=== PATIENT | female | born 1940 | race Caucasian/White ===

== ENCOUNTER → 2023-08-15 14:28 | Outpatient (REF) | payer MEDICARE, OTHER, SELFPAY | LOC: RAD 14:28 | PROVIDERS: ATTENDING PHYSICIAN Physician Assistant Medical; FAMILY PHYSICIAN Internal Medicine Geriatric Medicine | DX: I73.9 Peripheral vascular disease, unspecified (principal); Z98.62 Peripheral vascular angioplasty status; Z86.39 Personal history of other endocrine, nutritional and metabolic disease; Z86.79 Personal history of other diseases of the circulatory system; I65.23 Occlusion and stenosis of bilateral carotid arteries | CPT/HCPCS: 93880; 93922; 93925 ==

== ENCOUNTER → 2023-08-27 15:22 | Outpatient (REF) | payer MEDICARE, OTHER, SELFPAY ==
[2023-08-27 10:53] LABS: % Basophils 0.2 % (0-2); % Eosinophils 2.3 % (0-6); % Immature Granulocytes 0.2 % (0-0.5); % Lymphocytes 18.3 % (20.5-51.1); % Monocytes 9.9 % (1.7-9.3); % Neutrophils 69.1 % (42.2-75.2); Absolute Eosinophils 0.2 10^3/uL (0-0.7); Absolute Lymphocytes 1.2 10^3/uL (1.2-3.4); Absolute Monocytes 0.6 10^3/uL (0.1-0.6); Absolute Neutrophils 4.5 10^3/uL (1.4-6.5); Hematocrit 29.5 % (37.0-47.0); Mean Corp Hgb Conc. 33.9 g/dL (33.0-37.0); Mean Corpuscular Volume 97.4 fL (81.0-99.0); Mean Platelet Volume 10.2 fL (7.4-10.4); Platelet Count 247 10^3/uL (130-400); Red Blood Cell Count 3.03 10^6/uL (4.20-5.40); Red Cell Dist. Width 14.3 % (11.5-14.5); White Blood Cell Count 6.5 10^3/uL (4.8-10.8)
[2023-08-27 11:55] LABS: ALT (SGPT) 21 U/L (0-35); AST (SGOT) 33 U/L (14-36); Albumin 4.2 g/dl (3.5-5.0); Alkaline Phosphatase 77 U/L (38-126); Blood Urea Nitrogen 22 mg/dl (7-17); Calcium 9.6 mg/dl (8.4-10.2); Carbon Dioxide 27 mmol/L (22-30); Chloride 103 mmol/L (98-107); Glucose 88 mg/dl (70-99); Iron 69 ug/dl (37-170); Potassium 4.1 mmol/L (3.5-5.1); Sodium 138 mmol/L (135-145); Total Bilirubin 0.8 mg/dl (0.2-1.3); eGFR 45.76
[2023-08-27 12:04] LABS: Percent Saturation 19 % (20-50); Total Iron Binding Capacity 363 ug/dl (265-497)
[2023-08-27 12:28] LABS: Ferritin 66.5 ng/ml (11.1-264.0)
== END ==
LOC: OIDL 15:22
PROVIDERS: ATTENDING PHYSICIAN Internal Medicine Hematology & Oncology
DX: C92.10 Chronic myeloid leukemia, BCR/ABL-positive, not having achieved remission (principal)
CPT/HCPCS: 80053; 82728; 83540; 83550; 85025

== ENCOUNTER → 2023-08-30 06:44 | Outpatient (REF) | payer MEDICARE, OTHER, SELFPAY | LOC: MRI 06:44 | PROVIDERS: ATTENDING PHYSICIAN Physical Medicine & Rehabilitation; FAMILY PHYSICIAN Internal Medicine Geriatric Medicine | DX: M54.16 Radiculopathy, lumbar region (principal) | CPT/HCPCS: 72148 ==

== ENCOUNTER → 2023-09-22 15:12 | Outpatient (REF) | payer MEDICARE, OTHER, SELFPAY ==
[2023-09-22 15:44] LABS: % Basophils 0.1 % (0-2); % Immature Granulocytes 0.3 % (0-0.5); % Monocytes 10.6 % (1.7-9.3); Absolute Eosinophils 0.2 10^3/uL (0-0.7); Absolute Lymphocytes 1.6 10^3/uL (1.2-3.4); Absolute Monocytes 0.8 10^3/uL (0.1-0.6); Absolute Neutrophils 5.1 10^3/uL (1.4-6.5); Hematocrit 28.7 % (37.0-47.0); Hemoglobin 9.6 g/dL (12.0-16.0); Mean Corp Hgb Conc. 33.4 g/dL (33.0-37.0); Mean Corpuscular Hgb 32.5 pg (27.0-31.0); Mean Corpuscular Volume 97.3 fL (81.0-99.0); Mean Platelet Volume 10.7 fL (7.4-10.4); Nucleated Red Blood Cells % 0 %; Platelet Count 202 10^3/uL (130-400); Red Blood Cell Count 2.95 10^6/uL (4.20-5.40); Red Cell Dist. Width 13.3 % (11.5-14.5); White Blood Cell Count 7.7 10^3/uL (4.8-10.8)
[2023-09-22 15:53] LABS: Urine Albumin Negative (Neg - Trace); Urine Bilirubin Negative (Negative); Urine Character Clear (Clear); Urine Color Yellow; Urine Glucose Negative (Negative); Urine Ketone Negative (Negative); Urine Leukocyte Trace (Negative); Urine Nitrite Negative (Negative); Urine Occult Blood Negative (Negative); Urine Specific Gravity 1.015 (<1.030); Urine Urobilinogen Negative (Neg - 1+)
[2023-09-22 15:56] LABS: ALT (SGPT) 16 U/L (0-35); AST (SGOT) 28 U/L (14-36); Albumin 4.2 g/dl (3.5-5.0); Alkaline Phosphatase 60 U/L (38-126); Blood Urea Nitrogen 28 mg/dl (7-17); Calcium 9.5 mg/dl (8.4-10.2); Carbon Dioxide 29 mmol/L (22-30); Chloride 103 mmol/L (98-107); Glucose 80 mg/dl (70-99); Potassium 3.6 mmol/L (3.5-5.1); Sodium 138 mmol/L (135-145); Total Bilirubin 0.8 mg/dl (0.2-1.3); Total Protein 6.1 g/dl (6.3-8.2); eGFR 50.48
[2023-09-22 16:02] LABS: NT-proBNP 9720 pg/ml
[2023-09-22 16:21] LABS: Urine Amorphous Seen; Urine White Cell 0-2 /HPF (0-5)
== END ==
LOC: REG 15:12
PROVIDERS: ATTENDING PHYSICIAN Nurse Practitioner Family
DX: R53.83 Other fatigue (principal); R60.0 Localized edema
CPT/HCPCS: 36415; 80053; 81003; 81015; 83880; 85025

== ENCOUNTER → 2023-10-03 08:45 | Outpatient (REF) | payer MEDICARE, OTHER, SELFPAY | LOC: HWRAD 08:45 | PROVIDERS: ATTENDING PHYSICIAN Nurse Practitioner Family; FAMILY PHYSICIAN Internal Medicine Geriatric Medicine | DX: R53.83 Other fatigue (principal); R60.0 Localized edema | CPT/HCPCS: 93970 ==

== ENCOUNTER → 2023-11-26 13:50 | Outpatient (REF) | payer MEDICARE, OTHER, SELFPAY ==
[2023-11-26 09:29] LABS: % Basophils 0.4 % (0-2); % Eosinophils 3.2 % (0-6); % Immature Granulocytes 0.1 % (0-0.5); % Monocytes 7.3 % (1.7-9.3); Absolute Eosinophils 0.2 10^3/uL (0-0.7); Absolute Lymphocytes 1.4 10^3/uL (1.2-3.4); Absolute Monocytes 0.6 10^3/uL (0.1-0.6); Absolute Neutrophils 5.4 10^3/uL (1.4-6.5); Hematocrit 31.7 % (37.0-47.0); Hemoglobin 10.7 g/dL (12.0-16.0); Mean Corp Hgb Conc. 33.8 g/dL (33.0-37.0); Mean Corpuscular Hgb 31.8 pg (27.0-31.0); Mean Corpuscular Volume 94.3 fL (81.0-99.0); Platelet Count 208 10^3/uL (130-400); Red Blood Cell Count 3.36 10^6/uL (4.20-5.40); Red Cell Dist. Width 13.7 % (11.5-14.5); White Blood Cell Count 7.6 10^3/uL (4.8-10.8)
[2023-11-26 10:13] LABS: ALT (SGPT) 22 U/L (0-35); AST (SGOT) 40 U/L (14-36); Albumin 4.3 g/dl (3.5-5.0); Alkaline Phosphatase 72 U/L (38-126); Blood Urea Nitrogen 24 mg/dl (7-17); Calcium 9.4 mg/dl (8.4-10.2); Carbon Dioxide 28 mmol/L (22-30); Chloride 100 mmol/L (98-107); Glucose 92 mg/dl (70-99); Iron 83 ug/dl (37-170); Potassium 3.7 mmol/L (3.5-5.1); Sodium 139 mmol/L (135-145); Total Bilirubin 0.8 mg/dl (0.2-1.3); Total Protein 6.2 g/dl (6.3-8.2); eGFR 41.31
[2023-11-26 10:22] LABS: Percent Saturation 24 % (20-50); Total Iron Binding Capacity 337 ug/dl (265-497)
[2023-11-26 10:47] LABS: Ferritin 57.5 ng/ml (11.1-264.0)
== END ==
LOC: OIDL 13:50
PROVIDERS: ATTENDING PHYSICIAN Internal Medicine Hematology & Oncology
DX: C92.10 Chronic myeloid leukemia, BCR/ABL-positive, not having achieved remission (principal)
CPT/HCPCS: 80053; 82728; 83540; 83550; 83735; 85025

== ENCOUNTER → 2024-01-21 10:06 | Outpatient (REF) | payer MEDICARE, OTHER, SELFPAY | LOC: HWRAD 10:06 | PROVIDERS: ATTENDING PHYSICIAN Physician Assistant; FAMILY PHYSICIAN Internal Medicine Geriatric Medicine | DX: E04.2 Nontoxic multinodular goiter (principal) | CPT/HCPCS: 76536 ==

== ENCOUNTER → 2024-01-26 09:40 | Outpatient (REF) | payer MEDICARE, OTHER, SELFPAY | LOC: HWWDC 09:40 | PROVIDERS: ATTENDING PHYSICIAN Obstetrics & Gynecology; FAMILY PHYSICIAN Internal Medicine Geriatric Medicine | DX: Z12.31 Encounter for screening mammogram for malignant neoplasm of breast (principal) | CPT/HCPCS: 77063; 77067 ==

== ENCOUNTER 2024-02-21 19:58 | Emergency (ER) | payer MEDICARE, OTHER, SELFPAY ==
[2024-02-21 20:05] VITALS: BP 168/76
[2024-02-21 21:15] VITALS: BMI 34.6
[2024-02-21 21:23] VITALS: BP 168/59
[2024-02-21 21:42] LABS: % Basophils 0.1 % (0-2); % Eosinophils 0.7 % (0-6); % Immature Granulocytes 0.3 % (0-0.5); % Monocytes 7.3 % (1.7-9.3); % Neutrophils 76.6 % (42.2-75.2); Absolute Eosinophils 0.1 10^3/uL (0-0.7); Absolute Lymphocytes 1.4 10^3/uL (1.2-3.4); Absolute Monocytes 0.7 10^3/uL (0.1-0.6); Absolute Neutrophils 6.9 10^3/uL (1.4-6.5); Hematocrit 29.8 % (37.0-47.0); Hemoglobin 10.6 g/dL (12.0-16.0); Mean Corp Hgb Conc. 35.6 g/dL (33.0-37.0); Mean Corpuscular Hgb 32.2 pg (27.0-31.0); Mean Corpuscular Volume 90.6 fL (81.0-99.0); Mean Platelet Volume 10.4 fL (7.4-10.4); Nucleated Red Blood Cells % 0 %; Platelet Count 225 10^3/uL (130-400); Red Blood Cell Count 3.29 10^6/uL (4.20-5.40); Red Cell Dist. Width 13.2 % (11.5-14.5); Urine Albumin Negative (Neg - Trace); Urine Bilirubin Negative (Negative); Urine Character Clear (Clear); Urine Color Yellow; Urine Glucose 3+ (Negative); Urine Ketone 1+ (Negative); Urine Leukocyte Negative (Negative); Urine Nitrite Negative (Negative); Urine Occult Blood Negative (Negative); Urine Urobilinogen Negative (Neg - 1+)
[2024-02-21 21:52] LABS: ALT (SGPT) 24 U/L (0-35); AST (SGOT) 42 U/L (14-36); Albumin 4.5 g/dl (3.5-5.0); Alkaline Phosphatase 69 U/L (38-126); Blood Urea Nitrogen 19 mg/dl (7-17); Calcium 9.5 mg/dl (8.4-10.2); Carbon Dioxide 26 mmol/L (22-30); Chloride 98 mmol/L (98-107); Estimated Creatinine Clearance 33 ml/min; Glucose 105 mg/dl (70-99); Potassium 3.7 mmol/L (3.5-5.1); Sodium 137 mmol/L (135-145); Total Bilirubin 1.1 mg/dl (0.2-1.3); Total Protein 6.5 g/dl (6.3-8.2); eGFR 41.31
[2024-02-21 22:00] VITALS: BP 152/54
--- NOTE | 2024-02-21 22:04 | ED.GENMED ---
History of Present Illness
General
Chief Complaint: Flank Pain
Source: patient
Exam Limitations: none
Time Seen by Provider: 02/21/24 21:14
History of Present Illness
History of Present Illness:
This is a 83 year old female that comes in with c/o left sided back pain in the kidney area. States that this started last night and she drank a lot of water. States that she did not sleep all night. States that she called her daughter today as she
didn't want to be alone. States that the pain got less but never really went away. States that the pain comes around from the back into the left groin. States that tonight she was nauseated and she took Zofran and right after this she vomited.
states that she does have diarrhea. Denies any fever, chills, chest pain, SOB, headache, dizziness, urinary burning.
Past History
Past History
ED Past Medical History: Arrthythmia (Atrial fib), CAD, Cancer (CML), CHF, GERD, HTN, Hypercholesterolemia and Other (back pain, Tingling arms and leg, DVT, pericarditis, GI bleeding, IBS, Shingles, Anemia, )
ED Past Surgical History: Cardiac (Stent), Gynecological (D&C), Orthopedic (right and left knee meniscus repair, carpal tunnel, Back surgery x 2), Tonsilectomy and Other (cataracts, hemorrhoids, )
Social History
Tobacco: Former smoker
Alcohol: None
Personal:
Living: alone
Employment: Not employed
Review of Systems
Review of Systems
All Other Systems: ROS reviewed and negative except as documented in HPI and ROS
Constitutional: Reports no symptoms; Denies fever or chills
EENT: Reports no symptoms
Respiratory: Reports no symptoms; Denies cough or trouble breathing
Cardiac: Reports no symptoms; Denies chest pain
ABD/GI: Reports abdominal pain, nausea and vomiting; Denies diarrhea
: Reports no symptoms; Denies dysuria, frequency or urgency
Musculoskeletal: Reports no symptoms
Skin: Reports no symptoms
Neurological: Reports no symptoms; Denies dizzy or headache
Psychiatric: Reports no symptoms
Phy Exam
General Physical Exam
General Presentation: mild distress
General age: appears stated age
General Skin: warm and dry
General Habitus: elderly
General Mental: alert
General Hydration: dry mucous membranes
ENT Exam
ENT Exam: TM's normal, pharynx normal and neck supple
Eye Exam
Eye Exam: EOMI
Cardiovascular Exam
Cardiovascular Exam: regular rate/rhythm, no edema, normal peripheral pulses and other (Murmur)
Pulmonary Exam
Pulmonary Exam: lungs clear, no respiratory distress, no rales, chest non tender, no crackles, no rhonchi, no wheezing and no cough
Gastrointestinal Exam
Gastrointestinal Exam: normal bowel sounds, soft, no organomegaly, no pulsatile mass, non distended, no cva tenderness and tender (Left sided abd tenderness with palpation)
Musculoskeletal Exam
Musculoskeletal Exam: full ROM and no edema
Skin Exam
Skin Exam: normal color, warm/dry, no rash and no petechia
Course
Orders/Labs/Results
Orders:
Orders
02/21/24 21:29
Complete Blood Count/With Diff Urgent
Comprehensive Metabolic Panel Urgent
Urinalysis Urgent
Date Specimen was Collected: 02/21/24
Time Specimen was Collected: 20:26
02/21/24 22:04
CT Abd/pelvis W Iv Cont Urgent
Comment:
Reason For Exam: lEFT FLANK PAIN
02/21/24 22:06
Ondansetron Injectable [Zofran] 4 mg IV NOW STA
02/21/24 22:10
HYDROmorphone [Dilaudid] 0.5 mg IV NOW STA
Abnormal Lab Results
02/21/24
21:29
RBC 3.29 L 10^6/uL
(4.20-5.40)
Hgb 10.6 L g/dL
(12.0-16.0)
Hct 29.8 L %
(37.0-47.0)
MCH 32.2 H pg
(27.0-31.0)
Absolute Neuts (auto) 6.9 H 10^3/uL
(1.4-6.5)
Absolute Monos (auto) 0.7 H 10^3/uL
(0.1-0.6)
Neutrophils % 76.6 H %
(42.2-75.2)
Lymphocytes % 15.0 L %
(20.5-51.1)
BUN 19 H mg/dl
(7-17)
Creatinine 1.3 H mg/dL
(0.6-1.0)
Glucose 105 H mg/dl
(70-99)
AST 42 H U/L
(14-36)
Urine Ketones 1+ A
(Negative)
Urine Glucose 3+ A
(Negative)
02/21/24 21:29
02/21/24 21:29
H/H slightly low, anemia, Slight Dehydration. glucose nonfasting. AST mildly elevated. Urine negative for infection.
Vital Signs
Initial and Last Documented VS:
Initial Vital Signs
Temp Pulse Resp BP Pulse Ox
98.3 F 74 20 168/76 97
02/21/24 20:05 02/21/24 20:05 02/21/24 20:05 02/21/24 20:05 02/21/24 20:05
Last Documented Vital Signs
Temp Pulse Resp BP Pulse Ox
98.3 F 74 20 152/54 95
02/21/24 20:05 02/21/24 20:05 02/21/24 20:05 02/21/24 22:00 02/21/24 23:30
MDM/Problems Addressed
Differential Diagnosis Includes:
Diverticulitis, Colitis, renal calculus
MDM/Problems Addressed:
This is a 83 year old female that comes in with c/o left sided back pain that comes around to her abd. States that this started last night and she was unable to sleep.
Will check labs, urine and get CT scan.
back into see patient. Explained that her CT is negative for any renal calculus, obstruction or diverticulitis. Patient Urine is negative for infection. Explained that this may be due to degenerative change sin the back. Patient can use heat or ice
to the low back. Tylenol 1000mg every 6 hours for pain. Follow up with the family doctor. Return with any concerns.
Chronic conditions affecting care:
GI bleeding,
Chronic conditions affecting care: Cancer
Acute Exacerbation and/or Progression of Chronic Illness:
NA
*Radiology
Radiology exam reviewed: radiology read reviewed (CT night hawk-NO evidence of obstructing ureteral calculus. No evidence of diverticulitis. Noninflamed appendix. No evidence of bowel obstruction. Additional findings: Moderate hiatal hernia. DJD.
Lumbar levoscoliosis. Vascular calcifications including coronary artery calcifications. ) and other (CT cont-Probable left renal cystic focus. )
*Pulse Oximetry
Patient hypoxic: no
*EKG
Interpreted by ED Provider?: NA
Rate: EKG- N/A
*Product Applications Scientist Interpretation
Rate: Product Applications Scientist- N/A
*Critical Care Note
Total Time (30-74mins, 75-104mins- exclusive of procedures): Not Applicable
ED Attending Note
-
Portions of this chart may have been created with voice recognition software.� Occasional wrong word or��sound alike� substitutions may have occurred due to the inherent limitations of voice recognition software.
Discharge Plan
Departure
Patient Disposition: Home (Routine Discharge)
Date of Disposition: 02/22/24
Time of Disposition: 00:24
Patient with high blood pressure during this ER visit?: Yes
Condition: Good
Covid-19: Not Applicable
Discharge Problem:
Back pain
Instructions: Low Back Pain (DC), BLOOD PRESSURE
Prescriptions:
No Action
Repatha Syringe 140 MG/ML syringe
140 mg SC Q2W
alprazolam 0.25 MG tablet
0.25 mg PO DAILYPRN PRN (Reason: anxiety/sleep)
Patient Comments:
04/08/2023: last filled 09/04/22, 30 tabs for 30 days from [facility][id number]
pantoprazole 40 MG tablet,delayed release (DR/EC)
40 mg PO DAILY
irbesartan 300 MG tablet
300 mg PO DAILY
hydralazine 50 MG tablet
75 mg PO BID
imatinib 400 MG tablet
400 mg PO HS
isosorbide mononitrate 30 MG tablet extended release 24 hr
30 mg PO DAILY
alendronate 70 MG tablet
70 mg PO MO
metoprolol succinate 50 MG tablet extended release 24 hr
50 mg PO HS
Eliquis 5 MG tablet
5 mg PO BID Qty: 30 0RF
doxycycline hyclate 100 mg Capsule
100 mg PO Q12 Qty: 10 0RF
gabapentin 300 mg Capsule
300 mg PO TID Qty: 90 0RF
Referrals:
Caden Caballero MD [Family Provider] - Call in 1-3 days for appt
Activity Restrictions/Additional Instructions:
As discussed, your blood work shows very slight Dehydration. Your Urine is negative for infection and your CT is negative for any acute process. You may is most likely from the degenerative changes in the low back. You may use heat or ice to the
back. Tylenol 1000mg every 6 hours for pain. Follow up with the family doctor for recheck. IF YOU HAVE ANY OTHER CONCERNS PLEASE RETURN TO THE EMERGENCY ROOM.
Interventions
Interventions:
*Risk Screen - Suicide Last Done: 02/21/24 20:05
*General Assessment Last Done: 02/21/24 21:15
*Neglect/Abuse Screening Last Done: 02/21/24 20:05
ED- Fall Risk Assessment Last Done: 02/21/24 21:15
*ED COVID-19 Vaccine History Last Done: 02/21/24 21:15
WC-Nqmmax-Zqnlrzvlkq Assessment Last Done: 02/21/24 21:15
ED-Female Genitourinary Assessment Last Done: 02/21/24 21:15
Discharge Date and Time
Print Language: HEBREW
[2024-02-21] MEDS: ZOFRAN 4 MG IV (22:15)
[2024-02-21] MEDS: DILAUDID 0.5 MG IV (22:24)
== END 2024-02-22 01:04 | disposition home or self-care (01) ==
LOC: EMR 19:58
PROVIDERS: Emergency Medicine; EMERGENCY PHYSICIAN Student in an Organized Health Care Education/Training Program; FAMILY PHYSICIAN Internal Medicine Geriatric Medicine
DX: M54.50 Low back pain, unspecified (principal); E78.00 Pure hypercholesterolemia, unspecified; I11.0 Hypertensive heart disease with heart failure; I50.9 Heart failure, unspecified; D64.9 Anemia, unspecified; E86.0 Dehydration; Z87.891 Personal history of nicotine dependence; Z95.5 Presence of coronary angioplasty implant and graft; K21.9 Gastro-esophageal reflux disease without esophagitis; Z85.6 Personal history of leukemia; Z86.718 Personal history of other venous thrombosis and embolism
CPT/HCPCS: 96374; 99284; 96375; 74177; 80053; 81003; 85025; Q9967

== ENCOUNTER → 2024-02-25 13:55 | Outpatient (REF) | payer MEDICARE, OTHER, SELFPAY ==
[2024-02-25 09:43] LABS: % Basophils 0.1 % (0-2); % Eosinophils 3.7 % (0-6); % Immature Granulocytes 0.1 % (0-0.5); % Lymphocytes 19.3 % (20.5-51.1); % Monocytes 9.3 % (1.7-9.3); % Neutrophils 67.5 % (42.2-75.2); Absolute Eosinophils 0.3 10^3/uL (0-0.7); Absolute Lymphocytes 1.5 10^3/uL (1.2-3.4); Absolute Monocytes 0.7 10^3/uL (0.1-0.6); Absolute Neutrophils 5.3 10^3/uL (1.4-6.5); Hematocrit 32.7 % (37.0-47.0); Mean Corp Hgb Conc. 33.6 g/dL (33.0-37.0); Mean Corpuscular Hgb 32.6 pg (27.0-31.0); Mean Platelet Volume 10.1 fL (7.4-10.4); Platelet Count 236 10^3/uL (130-400); Red Blood Cell Count 3.37 10^6/uL (4.20-5.40); Red Cell Dist. Width 13.1 % (11.5-14.5); White Blood Cell Count 7.9 10^3/uL (4.8-10.8)
[2024-02-25 10:36] LABS: ALT (SGPT) 24 U/L (0-35); AST (SGOT) 40 U/L (14-36); Albumin 4.4 g/dl (3.5-5.0); Alkaline Phosphatase 62 U/L (38-126); Blood Urea Nitrogen 20 mg/dl (7-17); Calcium 9.4 mg/dl (8.4-10.2); Carbon Dioxide 27 mmol/L (22-30); Chloride 101 mmol/L (98-107); Glucose 89 mg/dl (70-99); Iron 50 ug/dl (37-170); Magnesium 2.1 mg/dl (1.6-2.3); Potassium 3.8 mmol/L (3.5-5.1); Sodium 141 mmol/L (135-145); Total Bilirubin 0.8 mg/dl (0.2-1.3); Total Protein 6.3 g/dl (6.3-8.2); eGFR 45.48
[2024-02-25 10:45] LABS: Percent Saturation 14 % (20-50); Total Iron Binding Capacity 336 ug/dl (265-497)
[2024-02-25 11:12] LABS: Ferritin 67.6 ng/ml (11.1-264.0)
== END ==
LOC: OIDL 13:55
PROVIDERS: ATTENDING PHYSICIAN Internal Medicine Hematology & Oncology
DX: C92.10 Chronic myeloid leukemia, BCR/ABL-positive, not having achieved remission (principal); D50.9 Iron deficiency anemia, unspecified; D59.0 Drug-induced autoimmune hemolytic anemia
CPT/HCPCS: 80053; 82728; 83540; 83550; 83735; 85025

== ENCOUNTER → 2024-04-03 09:10 | Outpatient (REF) | payer MEDICARE, OTHER, SELFPAY ==
[2024-04-03 10:37] LABS: ALT (SGPT) 30 U/L (0-35); AST (SGOT) 41 U/L (14-36); Albumin 4.4 g/dl (3.5-5.0); Alkaline Phosphatase 78 U/L (38-126); Blood Urea Nitrogen 22 mg/dl (7-17); Calcium 9.7 mg/dl (8.4-10.2); Carbon Dioxide 30 mmol/L (22-30); Chloride 100 mmol/L (98-107); Glucose 79 mg/dl (70-99); HDL Cholesterol 65 mg/dl; LDL Cholesterol, Calculated 48 mg/dl; Potassium 4.8 mmol/L (3.5-5.1); Sodium 142 mmol/L (135-145); Total Bilirubin 0.9 mg/dl (0.2-1.3); Total Cholesterol 136 mg/dl (50-199); Total Protein 6.5 g/dl (6.3-8.2); Triglyceride 117 mg/dl (10-149); Very Low Density Lipoprotein 23 mg/dl (0-30); eGFR 41.31
== END ==
LOC: REG 09:10
PROVIDERS: ATTENDING PHYSICIAN Internal Medicine Cardiovascular Disease; FAMILY PHYSICIAN Internal Medicine Geriatric Medicine
DX: Z95.5 Presence of coronary angioplasty implant and graft (principal); N18.2 Chronic kidney disease, stage 2 (mild); I25.10 Atherosclerotic heart disease of native coronary artery without angina pectoris; E78.00 Pure hypercholesterolemia, unspecified
CPT/HCPCS: 36415; 80053; 80061

== ENCOUNTER → 2024-04-07 10:02 | Outpatient (REF) | payer MEDICARE, OTHER, SELFPAY | LOC: HWRCS 10:02 | PROVIDERS: ATTENDING PHYSICIAN Internal Medicine Cardiovascular Disease; FAMILY PHYSICIAN Internal Medicine Geriatric Medicine | DX: I35.0 Nonrheumatic aortic (valve) stenosis (principal) | CPT/HCPCS: 93306 ==

== ENCOUNTER → 2024-07-16 13:38 | Outpatient (REF) | payer OTHER, SELFPAY | LOC: RAD 13:38 | PROVIDERS: ATTENDING PHYSICIAN Student in an Organized Health Care Education/Training Program; FAMILY PHYSICIAN Internal Medicine Geriatric Medicine | DX: I73.9 Peripheral vascular disease, unspecified (principal) | CPT/HCPCS: 93923; 93925 ==

== ENCOUNTER → 2024-07-20 08:21 | Outpatient (REF) | payer OTHER, SELFPAY ==
[2024-07-20 12:45] LABS: % Basophils 0.1 % (0-2); % Eosinophils 1.6 % (0-6); % Immature Granulocytes 0.3 % (0-0.5); % Lymphocytes 12.8 % (20.5-51.1); % Monocytes 7.2 % (1.7-9.3); Absolute Eosinophils 0.2 10^3/uL (0-0.7); Absolute Lymphocytes 1.2 10^3/uL (1.2-3.4); Absolute Monocytes 0.7 10^3/uL (0.1-0.6); Absolute Neutrophils 7.2 10^3/uL (1.4-6.5); Hematocrit 32.8 % (37.0-47.0); Mean Corp Hgb Conc. 33.5 g/dL (33.0-37.0); Mean Corpuscular Hgb 32.9 pg (27.0-31.0); Mean Corpuscular Volume 98.2 fL (81.0-99.0); Mean Platelet Volume 10.6 fL (7.4-10.4); Nucleated Red Blood Cells % 0 %; Platelet Count 244 10^3/uL (130-400); Red Blood Cell Count 3.34 10^6/uL (4.20-5.40); Red Cell Dist. Width 14.2 % (11.5-14.5); White Blood Cell Count 9.3 10^3/uL (4.8-10.8)
[2024-07-20 13:00] LABS: ALT (SGPT) 23 U/L (0-35); AST (SGOT) 39 U/L (14-36); Albumin 4.6 g/dl (3.5-5.0); Alkaline Phosphatase 66 U/L (38-126); Blood Urea Nitrogen 19 mg/dl (7-17); Calcium 9.4 mg/dl (8.4-10.2); Carbon Dioxide 32 mmol/L (22-30); Chloride 97 mmol/L (98-107); Glucose 94 mg/dl (70-99); Potassium 3.3 mmol/L (3.5-5.1); Sodium 139 mmol/L (135-145); Total Protein 6.4 g/dl (6.3-8.2); eGFR 45.48
[2024-07-20 15:00] LABS: Free T4 1.42 ng/dl (0.78-2.19)
[2024-07-20 15:14] LABS: TSH 2.22 uIU/ml (0.47-4.68)
[2024-07-20 15:54] LABS: Free T3 3.79 pg/ml (2.77-5.27)
[2024-07-23 09:19] LABS: Total T3 (Sendout) 111 ng/dL (80-200)
== END ==
LOC: HWRAD 08:21
PROVIDERS: ATTENDING PHYSICIAN Physician Assistant; FAMILY PHYSICIAN Internal Medicine Geriatric Medicine; REFERRING PHYSICIAN Internal Medicine Hematology & Oncology
DX: E04.2 Nontoxic multinodular goiter (principal); C92.10 Chronic myeloid leukemia, BCR/ABL-positive, not having achieved remission; D50.9 Iron deficiency anemia, unspecified; R59.0 Localized enlarged lymph nodes; E05.90 Thyrotoxicosis, unspecified without thyrotoxic crisis or storm
CPT/HCPCS: 36415; 76536; 80053; 84439; 84443; 84480; 84481; 85025

== ENCOUNTER 2024-08-02 13:57 | Emergency (ER) | payer OTHER, SELFPAY ==
[2024-08-02 14:03] VITALS: BP 159/65
[2024-08-02 14:32] LABS: % Basophils 0.1 % (0-2); % Eosinophils 1.1 % (0-6); % Immature Granulocytes 0.2 % (0-0.5); % Lymphocytes 17.1 % (20.5-51.1); % Neutrophils 73.5 % (42.2-75.2); Absolute Eosinophils 0.1 10^3/uL (0-0.7); Absolute Lymphocytes 1.4 10^3/uL (1.2-3.4); Absolute Monocytes 0.7 10^3/uL (0.1-0.6); Hematocrit 32.9 % (37.0-47.0); Hemoglobin 11.2 g/dL (12.0-16.0); Mean Corpuscular Hgb 32.5 pg (27.0-31.0); Mean Corpuscular Volume 95.4 fL (81.0-99.0); Mean Platelet Volume 10.1 fL (7.4-10.4); Nucleated Red Blood Cells % 0 %; Platelet Count 249 10^3/uL (130-400); Red Blood Cell Count 3.45 10^6/uL (4.20-5.40); Red Cell Dist. Width 13.9 % (11.5-14.5); White Blood Cell Count 8.1 10^3/uL (4.8-10.8)
[2024-08-02 14:46] LABS: ALT (SGPT) 22 U/L (0-35); AST (SGOT) 36 U/L (14-36); Albumin 4.5 g/dl (3.5-5.0); Alkaline Phosphatase 60 U/L (38-126); Blood Urea Nitrogen 20 mg/dl (7-17); Calcium 9.6 mg/dl (8.4-10.2); Carbon Dioxide 26 mmol/L (22-30); Chloride 103 mmol/L (98-107); Glucose 127 mg/dl (70-99); Potassium 3.4 mmol/L (3.5-5.1); Sodium 141 mmol/L (135-145); Total Protein 6.4 g/dl (6.3-8.2); eGFR 45.48
[2024-08-02 15:16] LABS: TSH Reflex To Free T4 3.25 uIU/ml (0.47-4.68)
--- NOTE | 2024-08-02 16:17 | ED.GENMED ---
History of Present Illness
General
Chief Complaint: Heart Rate Problem
Source: patient
Exam Limitations: none
Time Seen by Provider: 08/02/24 15:43
Nursing documentation reviewed up to this point in time: agreed with
History of Present Illness
History of Present Illness:
Patient is a 83 y.o F w/ hx CHF, CAD, hypertension, hyperlipidemia, paroxysmal afib on eliquis presenting to the emergency department today with concerns of heart palpitations. Patient states that she was sitting on the couch earlier today when she
started to have a fluttering sensation in her chest. She was able to check her Apple Watch which showed an 'inconclusive rhythm '. Patient states she had very mild shortness of breath at the time although denies any chest pain or back pain. She
denies any lightheadedness or dizziness. Her heart rate was apparently in the low 100s.
Patient states she had similar symptoms last night although they resolved. Today�symptoms persisted prompting visit to ED. She did take her nighttime dose of metoprolol prior to visiting the ED. She does have a history of atrial fibrillation,
compliant with Eliquis. Patient denies any cough, fever. No lower extremity swelling or recent weight gain. No exertional chest pain or shortness of breath.
Patient follows with Dr. Salcedo as primary slate trimmer.
Past History
Past History
ED Past Medical History: Arrthythmia (Atrial fib), CAD, Cancer (CML), CHF, GERD, HTN, Hypercholesterolemia and Other (back pain, Tingling arms and leg, DVT, pericarditis, GI bleeding, IBS, Shingles, Anemia, )
ED Past Surgical History: Cardiac (Stent), Gynecological (D&C), Orthopedic (right and left knee meniscus repair, carpal tunnel, Back surgery x 2), Tonsilectomy and Other (cataracts, hemorrhoids, )
Social History
Tobacco: Former smoker
Alcohol: None
Personal:
Living: alone
Employment: Not employed
Review of Systems
Review of Systems
Allergies reviewed?: Yes
All Other Systems: ROS reviewed and negative except as documented in HPI and ROS
Phy Exam
Physical Exam
Physical Exam:
Vitals: Mildly hypertensive. Otherwise vital signs stable. Afebrile
General: Patient is well appearing, no acute distress. Nontoxic-appearing
Skin: Warm and dry, no rashes or lesions
Head: Normocephalic, atraumatic
Eyes: Sclera nonicteric. EOMs intact. No nystagmus.
Throat: Protecting airway
Neck: Normal ROM, no cervical spine tenderness, no meningismus. No JVD
Cardiac: Regular rate and rhythm. Systolic ejection murmur noted. 2+ radial pulses bilaterally
Pulm: Normal respiratory effort, no wheezes, rales, rhonchi heard on exam.
Abdomen: Nondistended. Abdomen soft and nontender.
Extremities: No evidence of cyanosis or edema. Palpable DP pulses bilaterally
Neuro: AAOx3. Grossly intact..
Psychiatric: Normal affect.
Course
Orders/Labs/Results
Orders:
Orders
08/02/24 13:58
Electrocardiogram (*1) Urgent
Reason for Study: Atrial Fibrillation
EKG- Treatment ONCE
08/02/24 14:14
NT-proBNP Urgent
Comment: ADD ON
08/02/24 14:15
Complete Blood Count/With Diff Urgent
Comprehensive Metabolic Panel Urgent
Magnesium Urgent
Comment: ADD ON
TSH Reflex To Free T4 Urgent
08/02/24 16:03
Cardiac Monitoring- Treatment ONCE
CR Chest - 2 Views Urgent
Comment:
Reason For Exam: shortenss of breath
08/02/24 16:31
Add On- LAB Urgent
Tests Added?: pro-BNP
08/02/24 18:07
Add On- LAB Urgent
Tests Added?: magnesium
Abnormal Lab Results
08/02/24
14:15
RBC 3.45 L 10^6/uL
(4.20-5.40)
Hgb 11.2 L g/dL
(12.0-16.0)
Hct 32.9 L %
(37.0-47.0)
MCH 32.5 H pg
(27.0-31.0)
Absolute Monos (auto) 0.7 H 10^3/uL
(0.1-0.6)
Lymphocytes % 17.1 L %
(20.5-51.1)
Potassium 3.4 L mmol/L
(3.5-5.1)
BUN 20 H mg/dl
(7-17)
Creatinine 1.2 H mg/dL
(0.6-1.0)
Glucose 127 H mg/dl
(70-99)
08/02/24 14:15
08/02/24 14:15
Vital Signs
Initial and Last Documented VS:
Initial Vital Signs
Temp Pulse Resp BP Pulse Ox
97.9 F 71 18 159/65 97
08/02/24 14:03 08/02/24 14:03 08/02/24 14:03 08/02/24 14:03 08/02/24 14:03
Last Documented Vital Signs
Temp Pulse Resp BP Pulse Ox
97.9 F 72 24 131/57 98
08/02/24 14:03 08/02/24 18:15 08/02/24 18:00 08/02/24 18:00 08/02/24 18:15
MDM/Problems Addressed
Differential Diagnosis Includes:
Not limited to: Cardiac arrhythmia including atrial fibrillation, acute dehydration, viral illness, hyperthyroid etc.
MDM/Problems Addressed:
83-year-old female with history as documented presenting with palpitations. These were not exertional in nature. No associated chest pain, exertional shortness of breath, lightheadedness/dizziness. She does have history of atrial fibrillation,
compliant with Eliquis. Mildly hypertensive, otherwise vital signs stable. Physical exam as above. Basic screening labs symptoms in triage that any clinically significant abnormalities. Mild renal insufficiency noted which appears to be baseline
for patient. TSH normal. EKG shows normal sinus rhythm without any signs of arrhythmia or acute ischemic changes. Do not suspect acute coronary syndrome. Will check chest x-ray given mild shortness of breath and add on magnesium level. Closely
monitor and reassess
Update: Chest x-ray reviewed by angel acute abnormalities. Magnesium level normal. Did note a few PVCs on staff toxicologist which correlated with timing of patient's symptoms. Suspect intermittent PVCs likely contributing to symptoms today. This
quickly return to the normal sinus rhythm. Ultimately�workup in emergency department negative. Low suspicion for acute cardio/pulmonary process. Patient is very well and comfortable appearing. Feel patient stable for discharge home with
cardiology follow-up. Patient comfortable with plan. All questions answered.
Chronic conditions affecting care:
History of atrial fibrillation on Eliquis
Acute Exacerbation and/or Progression of Chronic Illness:
N/A
*Radiology
Radiology exam reviewed: preliminary read by ED provider (Chest x-ray reviewed by me-no acute abnormalities) and radiology read reviewed
*Pulse Oximetry
Patient hypoxic: no
*EKG
Interpreted by ED Provider?: Yes
EKG Intrepretation Date: 08/02/24
Interpretation: abnormal
Comparison EKG: changes noted
Heart Rate: 71
Rate: normal
Rhythm: sinus
[place]: normal axis
Interval: normal interval
QRS Pattern: normal QRS
Ischemia: non-specific ST changes
*Insulating Machine Operator Interpretation
Rate: normal
Interpretation: normal
Heart Rate: 72
Rhythm: sinus and PVC's
*Critical Care Note
Total Time (30-74mins, 75-104mins- exclusive of procedures): Not Applicable
ED Attending Note
-
Portions of this chart may have been created with voice recognition software.� Occasional wrong word or��sound alike� substitutions may have occurred due to the inherent limitations of voice recognition software.
Discharge Plan
Departure
Patient Disposition: Home (Routine Discharge)
Date of Disposition: 08/02/24
Time of Disposition: 18:14
Patient with high blood pressure during this ER visit?: Yes
Condition: Good
Covid-19: Not Applicable
Discharge Problem:
Heart palpitations
Instructions: Palpitations (DC), BLOOD PRESSURE
Prescriptions:
No Action
alprazolam 0.25 MG tablet
0.25 mg PO HSPRN PRN (Reason: anxiety/sleep)
pantoprazole 40 MG tablet,delayed release (DR/EC)
40 mg PO DAILY
imatinib 400 MG tablet
400 mg PO QPM
isosorbide mononitrate 30 MG tablet extended release 24 hr
30 mg PO DAILY
alendronate 70 MG tablet
70 mg PO MO
metoprolol succinate 50 MG tablet extended release 24 hr
50 mg PO HS
Patient Comments:
08/02/24:patient states she usually takes metoprolol succinate 50mg at bedtime but did take one dose today in the morning
Eliquis 5 MG tablet
5 mg PO BID Qty: 30 0RF
gabapentin 600 mg Tablet
600 mg PO TID
gabapentin 100 mg Capsule
100 mg PO HS
Rx Instructions:
taken with gabapentin 600mg tab for total of 700mg
hydrocodone-acetaminophen 5-325 mg Tablet
1 tab PO DAILYPRN PRN (Reason: severe pain)
Patient Comments:
08/02/24:last filled 09/11/22 at [facility]
hydralazine 25 mg Tablet
75 mg PO BID
Theragen Tablet
1 tab PO DAILY
furosemide 20 mg Tablet
20 mg PO DAILYPRN PRN (Reason: daily weight gain of 2-3 pounds)
vitamin B complex [B Complex] Capsule
1 cap PO DAILY
Systane (PF) 0.4-0.3 % Dropperette
1 drp BOTH EYES TIDPRN PRN (Reason: dryness)
cholecalciferol (vitamin D3) [Vitamin D3] 25 mcg (1,000 unit) Tablet
25 mcg PO DAILY
dapagliflozin propanediol [Farxiga] 10 mg Tablet
10 mg PO DAILY
Praluent Pen 75 mg/mL Pen Injector
75 mg SC Q2W
Patient Comments:
08/02/24: Tuesdays
Magnesium Cream
1 applic topical HSPRN PRN (Reason: leg cramps)
Patient Comments:
both legs
Referrals:
Chris Salcedo MD [Active] - Call in 1-3 days for appt
UNKNOWN - PT DOES,NOT KNOW [Unknown Provider] -
Activity Restrictions/Additional Instructions:
RETURN TO THE EMERGENCY DEPARTMENT WITH ANY CHEST PAIN, SHORTNESS OF BREATH/ DIFFICULTY BREATHING, DIZZINESS/LIGHTHEADEDNESS, PERSISTENTLY ELEVATED HEART RATE, OR ANY OTHER CONCERNS
-As discussed- it is important that you continue to take all of your prescriptions as prescribed.
-Stay well hydrated
-As discussed - we will contact you if any other labs come back abnormal.
-Follow-up with cardiology for further evaluation/management. Contact them tomorrow for appointment.
Monitor your symptoms closely and return to the emergency department with any acute worsening/new symptoms, or any other concerns
Interventions
Interventions:
*Risk Screen - Suicide Last Done: 08/02/24 14:03
*General Assessment Last Done: 08/02/24 14:03
*Neglect/Abuse Screening Last Done: 08/02/24 16:35
*ED- Fall Risk Assessment Last Done: 08/02/24 16:35
*ED COVID-19 Vaccine History Last Done: 08/02/24 16:35
*Nursing Disposition Last Done: 08/02/24 18:48
ED- Cardiac Assessment Last Done: 08/02/24 17:31
ED- Pulmonary Assessment Last Done: 08/02/24 17:31
Discharge Date and Time
Discharge Date/Time: 08/02/24 18:48
Print Language: BOLIVIAN
[2024-08-02 16:39] VITALS: BP 154/75
[2024-08-02 17:00] VITALS: BP 132/78
[2024-08-02 18:00] VITALS: BP 131/57
[2024-08-02 19:06] LABS: Magnesium 2.1 mg/dl (1.6-2.3)
[2024-08-02 21:04] LABS: NT-proBNP 7380 pg/ml
== END 2024-08-02 18:48 | disposition home or self-care (01) ==
LOC: EMR 13:57
PROVIDERS: Emergency Medicine; EMERGENCY PHYSICIAN Student in an Organized Health Care Education/Training Program; FAMILY PHYSICIAN Internal Medicine Geriatric Medicine
DX: R00.2 Palpitations (principal); I11.0 Hypertensive heart disease with heart failure; I50.9 Heart failure, unspecified; I48.0 Paroxysmal atrial fibrillation; E78.00 Pure hypercholesterolemia, unspecified; I25.10 Atherosclerotic heart disease of native coronary artery without angina pectoris; I49.3 Ventricular premature depolarization; K58.9 Irritable bowel syndrome, unspecified; Z79.01 Long term (current) use of anticoagulants; Z86.718 Personal history of other venous thrombosis and embolism; Z87.19 Personal history of other diseases of the digestive system; Z87.891 Personal history of nicotine dependence; Z95.5 Presence of coronary angioplasty implant and graft
CPT/HCPCS: 99283; 71046; 80053; 83735; 83880; 84443; 85025; 93005

== ENCOUNTER → 2024-09-01 10:02 | Outpatient (REF) | payer OTHER, SELFPAY ==
[2024-09-01 10:16] LABS: % Basophils 0.3 % (0-2); % Eosinophils 1.7 % (0-6); % Immature Granulocytes 0.1 % (0-0.5); % Lymphocytes 15.6 % (20.5-51.1); % Monocytes 7.4 % (1.7-9.3); % Neutrophils 74.9 % (42.2-75.2); Absolute Eosinophils 0.1 10^3/uL (0-0.7); Absolute Lymphocytes 1.1 10^3/uL (1.2-3.4); Absolute Monocytes 0.5 10^3/uL (0.1-0.6); Absolute Neutrophils 5.2 10^3/uL (1.4-6.5); Hematocrit 31.4 % (37.0-47.0); Hemoglobin 10.5 g/dL (12.0-16.0); Mean Corp Hgb Conc. 33.4 g/dL (33.0-37.0); Mean Corpuscular Hgb 32.5 pg (27.0-31.0); Mean Corpuscular Volume 97.2 fL (81.0-99.0); Mean Platelet Volume 10.2 fL (7.4-10.4); Platelet Count 221 10^3/uL (130-400); Red Blood Cell Count 3.23 10^6/uL (4.20-5.40); Red Cell Dist. Width 13.7 % (11.5-14.5); White Blood Cell Count 6.9 10^3/uL (4.8-10.8)
[2024-09-01 11:51] LABS: ALT (SGPT) 19 U/L (0-35); AST (SGOT) 34 U/L (14-36); Albumin 3.9 g/dl (3.5-5.0); Alkaline Phosphatase 55 U/L (38-126); Blood Urea Nitrogen 20 mg/dl (7-17); Calcium 9.2 mg/dl (8.4-10.2); Carbon Dioxide 28 mmol/L (22-30); Chloride 103 mmol/L (98-107); Glucose 82 mg/dl (70-99); Iron 88 ug/dl (37-170); Sodium 141 mmol/L (135-145); Total Bilirubin 0.9 mg/dl (0.2-1.3); Total Protein 5.8 g/dl (6.3-8.2); eGFR 50.48
[2024-09-01 12:02] LABS: Percent Saturation 26 % (20-50); Total Iron Binding Capacity 332 ug/dl (265-497)
[2024-09-01 12:25] LABS: Ferritin 69.6 ng/ml (11.1-264.0)
== END ==
LOC: OIDL 10:02
PROVIDERS: ATTENDING PHYSICIAN Internal Medicine Hematology & Oncology
DX: C92.10 Chronic myeloid leukemia, BCR/ABL-positive, not having achieved remission (principal); D50.9 Iron deficiency anemia, unspecified; R59.0 Localized enlarged lymph nodes
CPT/HCPCS: 80053; 82728; 83540; 83550; 85025

== ENCOUNTER 2024-10-24 20:00 | Inpatient (IN) | payer MEDICARE, OTHER, SELFPAY ==
[2024-10-24 15:29] VITALS: BMI 34.3
[2024-10-24 15:30] VITALS: BP 133/66
[2024-10-24 16:09] LABS: % Basophils 0.1 % (0-2); % Eosinophils 0.9 % (0-6); % Immature Granulocytes 0.2 % (0-0.5); % Monocytes 8.2 % (1.7-9.3); % Neutrophils 82.6 % (42.2-75.2); Absolute Eosinophils 0.1 10^3/uL (0-0.7); Absolute Lymphocytes 0.8 10^3/uL (1.2-3.4); Absolute Monocytes 0.8 10^3/uL (0.1-0.6); Absolute Neutrophils 8.2 10^3/uL (1.4-6.5); Hematocrit 26.6 % (37.0-47.0); Hemoglobin 8.9 g/dL (12.0-16.0); Mean Corp Hgb Conc. 33.5 g/dL (33.0-37.0); Mean Corpuscular Hgb 32.4 pg (27.0-31.0); Mean Corpuscular Volume 96.7 fL (81.0-99.0); Mean Platelet Volume 9.7 fL (7.4-10.4); Nucleated Red Blood Cells % 0 %; Platelet Count 312 10^3/uL (130-400); Red Blood Cell Count 2.75 10^6/uL (4.20-5.40)
[2024-10-24 16:22] LABS: INR 2.58; PT 27.7 Sec (11.4-14.6)
[2024-10-24 16:23] LABS: APTT 44.2 Sec (23.4-35.0)
[2024-10-24 16:37] LABS: ALT (SGPT) 21 U/L (0-35); AST (SGOT) 34 U/L (14-36); Albumin 3.9 g/dl (3.5-5.0); Alkaline Phosphatase 53 U/L (38-126); Blood Urea Nitrogen 23 mg/dl (7-17); Calcium 8.8 mg/dl (8.4-10.2); Carbon Dioxide 26 mmol/L (22-30); Chloride 102 mmol/L (98-107); Glucose 126 mg/dl (70-99); Potassium 3.3 mmol/L (3.5-5.1); Sodium 139 mmol/L (135-145); Total Bilirubin 1.3 mg/dl (0.2-1.3); Total Protein 5.9 g/dl (6.3-8.2); eGFR 29.76
[2024-10-24 16:53] LABS: NT-proBNP > 27000 pg/ml; Troponin I 0.196 ng/ml
--- NOTE | 2024-10-24 17:10 | ED.GENMED ---
History of Present Illness
General
Chief Complaint: Breathing Problem
Time Seen by Provider: 10/24/24 17:09
History of Present Illness
History of Present Illness:
TIME OF INITIAL EVALUATION
-
REVIEW OF OLD RECORDS
- Patient has a history of CAD, HFpEF, A-fib on Eliquis, and history of DVT. I reviewed records and the patient was seen in the emergency department with palpitations in July and was admitted here in 2022 with anemia and acute hypoxic respiratory
insufficiency that was felt related to decompensated CHF and left lower lobe pneumonia.
Note:
CHIEF COMPLAINT(S)
Shortness of breath
HISTORY OF PRESENT ILLNESS
The patient is an 84-year-old female with a past medical history significant for heart failure, anemia, and pneumonia, presenting with shortness of breath. The symptoms have worsened over the past week, during which the patient has experienced a
weight gain of approximately four pounds. The shortness of breath is exacerbated in the supine position. Labs reveal a very high BNP level indicative of heart failure and an elevated, albeit chronically elevated, troponin level. The patients
hemoglobin is currently lower than her baseline. Recent medical interventions include angioplasty and stent placement in the lower extremities, although there is persistent edema. Kidney function has deteriorated, complicating diuretic management
with furosemide; concurrent hypokalemia is present, necessitating IV and potassium supplementation. An echocardiogram is scheduled for further cardiac evaluation.
ADDITIONAL HISTORY OBTAINED FROM SOURCES OTHER THAN THE PATIENT
According to family, the patient has gained weight over the past week and has been more short of breath. They also reported about past angioplasties and ongoing swelling in the legs.
CHRONIC MEDICAL CONDITIONS SIGNIFICANTLY AFFECTING CARE
Chronic conditions affecting care: Heart failure, chronic kidney disease, anemia.
PHYSICAL EXAM
- General: Well appearing in no distress
- HEENT: Moist oral mucosa
- Cardiovascular: No murmurs, normal heart rate, regular rhythm, No chest wall tenderness
- Pulmonary: Very mild respiratory distress, minimal conversational dyspnea, breath sounds are decreased at the bases with some rales
- Abdomen: Soft with no peritoneal signs, no tenderness
- Neurologic: Excellent strength all extremities, no coordination deficits
- Psychiatric: Appropriate mental status, normal insight and judgement
- Extremities: Nontender, 2+ bilateral lower extremity edema, moves all extremities equally
- Skin: No rash, no lesions
PLAN
Administer intravenous and oral potassium. Monitor for further renal function deterioration and adjust medication as required. Echo to be considered (daughter states Dr. Salcedo wanted this) for cardiac function assessment. Consider hospitalization
for further management if labs and clinical status do not improve.
DIFFERENTIAL DIAGNOSIS
The Differential Diagnosis includes, in no particular order and is not limited to:
1. Acute decompensated heart failure
2. Pulmonary edema
3. Chronic kidney disease exacerbation
4. Anemia-related dyspnea
5. Pulmonary embolism
6. Chronic obstructive pulmonary disease exacerbation
7. Myocardial infarction
8. Pneumonia
9. Medication non-adherence
10. Cardiac tamponade very unlikely
RADIOLOGY
-
EKG
- Sinus 68, normal axis, inferior Q waves and T wave inversion, anterior T wave abnormality (worse)
LABS
- White count 10.0, hemoglobin 8.9 (in August it was 10.5), INR 2.6, potassium 3.3, creatinine 1.7 which is worse than prior (baseline 1.1-1.3), troponin 0.196 (lower than baseline), BNP greater than 27,000, markedly higher than baseline)
UPDATE
-10/24/24 - 17:43
Discussed with the patient and her daughter the elevated BNP levels, currently greater than 27,000, indicating significant CHF decompensation. The patient reports increased dyspnea with exertion and while lying supine, consistent with her congestive
heart failure. Peripheral edema is present, but perfusion remains adequate with good capillary refill.
Plan to administer intravenous potassium due to low serum potassium levels, anticipating further reduction from Lasix therapy. Hemoglobin levels are lower than her baseline, but there is no evidence of gastrointestinal bleeding from stool testing,
which returned heme negative however and only minimal stool was obtained on digital rectal examination.
Recommended continued hospitalization for further evaluation and management, including potential input from the internal medicine team. A chest x-ray is planned, and communication with cardiology via secure messaging is intended to coordinate
patient care. Adjustments to scheduled outpatient appointments, including an echocardiogram, will be made as necessary during her inpatient stay.
SUMMARY OF ENCOUNTER
The patient presented with significant dyspnea on exertion, suspected to be related to an acute exacerbation of heart failure. Pulmonary edema was noted on chest x-ray. The decision was made to admit the patient for intravenous diuresis and
potassium replacement.
DISPOSITION
The patient was admitted for further management.
INDEPENDENT REVIEW OF LABS AND INTERPRETATION OF TESTS
My independent interpretation of the chest x-ray is the presence of pulmonary edema.
MEDICATION RECONCILIATION
Medications planned include intravenous diuretics and intravenous potassium replacement.
MEDICAL DECISION MAKING
Chronic conditions affecting care: heart failure. Differential diagnoses considered included pulmonary edema, acute decompensated heart failure. Data reviewed: chest x-ray. External notes reviewed or information obtained from the family.
PATHOLOGIES TO CONSIDER
Acute exacerbation of heart failure and pulmonary edema are primary considerations in this clinical context.
Past History
Past History
ED Past Medical History: Arrthythmia (Atrial fib), CAD, Cancer (CML), CHF, GERD, HTN, Hypercholesterolemia and Other (back pain, Tingling arms and leg, DVT, pericarditis, GI bleeding, IBS, Shingles, Anemia, )
ED Past Surgical History: Cardiac (Stent), Gynecological (D&C), Orthopedic (right and left knee meniscus repair, carpal tunnel, Back surgery x 2), Tonsilectomy and Other (cataracts, hemorrhoids, )
Social History
Tobacco: Former smoker
Alcohol: None
Personal:
Living: alone
Employment: Not employed
Phy Exam
Physical Exam
Physical Exam:
See HPI
Scores
Heart Failure Risk
Heart Failure Risk Score: Not Applicable
Course
Orders/Labs/Results
Orders:
Orders
10/24/24 15:32
ECG [Electrocardiogram (*1)] Urgent
Reason for Study: Shortness of Breath
Other Reason for Exam: h/o CHF afib
EKG- Treatment ONCE
10/24/24 15:54
Complete Blood Count/With Diff Urgent
Comprehensive Metabolic Panel Urgent
NT-proBNP Urgent
PT/INR [Prothrombin Time] Urgent
PTT Urgent
Troponin I Urgent
10/24/24 17:14
CR Chest - 2 Views Urgent
Comment:
Reason For Exam: sob chf
10/24/24 17:20
Furosemide [Lasix] 40 mg IV NOW STA
Potassium Chloride [KCl] 40 meq 0.9% Sodium Chloride 250 ml [Nss] 250 ml IV NOW
Abnormal Lab Results
10/24/24
15:54
RBC 2.75 L 10^6/uL
(4.20-5.40)
Hgb 8.9 L g/dL
(12.0-16.0)
Hct 26.6 L %
(37.0-47.0)
MCH 32.4 H pg
(27.0-31.0)
RDW 15.0 H %
(11.5-14.5)
Absolute Neuts (auto) 8.2 H 10^3/uL
(1.4-6.5)
Absolute Lymphs (auto) 0.8 L 10^3/uL
(1.2-3.4)
Absolute Monos (auto) 0.8 H 10^3/uL
(0.1-0.6)
Neutrophils % 82.6 H %
(42.2-75.2)
Lymphocytes % 8.0 L %
(20.5-51.1)
PT 27.7 H Sec
(11.4-14.6)
APTT 44.2 H Sec
(23.4-35.0)
Potassium 3.3 L mmol/L
(3.5-5.1)
BUN 23 H mg/dl
(7-17)
Creatinine 1.7 H mg/dL
(0.6-1.0)
Glucose 126 H mg/dl
(70-99)
Troponin I 0.196 H* ng/ml
Total Protein 5.9 L g/dl
(6.3-8.2)
10/24/24 15:54
10/24/24 15:54
Vital Signs
Initial and Last Documented VS:
Initial Vital Signs
Temp Pulse Resp BP Pulse Ox
36.8 C 70 20 133/66 96
10/24/24 15:30 10/24/24 15:30 10/24/24 15:30 10/24/24 15:30 10/24/24 15:30
Last Documented Vital Signs
Temp Pulse Resp BP Pulse Ox
36.8 C 71 14 130/68 97
10/24/24 15:30 10/24/24 18:45 10/24/24 18:15 10/24/24 18:45 10/24/24 18:15
*Pulse Oximetry
SaO2: 96
Oxygen Mode of Delivery: Room air
Patient hypoxic: no
*Human Resources Trainee Interpretation
Rate: normal
Interpretation: normal
Heart Rate: 72
Rhythm: sinus
*Critical Care Note
Total Time (30-74mins, 75-104mins- exclusive of procedures): Not Applicable
ED Attending Note
-
Portions of this chart may have been created with voice recognition software.� Occasional wrong word or��sound alike� substitutions may have occurred due to the inherent limitations of voice recognition software.
Discharge Plan
Departure
Patient Disposition: Admit
Date of Disposition: 10/24/24
Time of Disposition: 18:56
Presentation/result/management discussed w/ accepting MD/DO: Hospitalist
Discharge Problem:
Acute exacerbation of CHF (congestive heart failure)
Prescriptions:
No Action
alprazolam 0.25 MG tablet
0.25 mg PO HSPRN PRN (Reason: anxiety/sleep)
pantoprazole 40 MG tablet,delayed release (DR/EC)
40 mg PO DAILY
imatinib 400 MG tablet
400 mg PO QPM
isosorbide mononitrate 30 MG tablet extended release 24 hr
30 mg PO DAILY
alendronate 70 MG tablet
70 mg PO MO
metoprolol succinate 50 MG tablet extended release 24 hr
50 mg PO HS
Eliquis 5 MG tablet
5 mg PO BID Qty: 30 0RF
gabapentin 600 mg Tablet
600 mg PO BID
gabapentin 100 mg Capsule
400 mg PO DAILY@1300
hydralazine 25 mg Tablet
75 mg PO BID
Theragen Tablet
1 tab PO DAILY
vitamin B complex [B Complex] Capsule
1 cap PO DAILY
Systane (PF) 0.4-0.3 % Dropperette
1 drp BOTH EYES TIDPRN PRN (Reason: dryness)
cholecalciferol (vitamin D3) [Vitamin D3] 25 mcg (1,000 unit) Tablet
25 mcg PO DAILY
dapagliflozin propanediol [Farxiga] 10 mg Tablet
10 mg PO DAILY
Praluent Pen 75 mg/mL Pen Injector
75 mg SC Q2W
loperamide 2 mg Tablet
2 mg PO BIDPRN PRN (Reason: DIARRHEA)
Referrals:
Caden Caballero MD [Family Provider, Internal Medicine]
Interventions
Interventions:
ED- Cardiac Assessment Last Done: 10/24/24 17:38
ED- Pulmonary Assessment Last Done: 10/24/24 17:38
Discharge Date and Time
Print Language: BOLIVIAN
[2024-10-24] MEDS: LASIX 40 MG IV (18:45)
[2024-10-24] MEDS: KCL 270 MEQ IV (18:45)
[2024-10-24 18:46] VITALS: BP 130/68
[2024-10-24 19:00] VITALS: BP 132/84
--- NOTE | 2024-10-24 19:06 | HPS.HSE ---
Family Physician
-
Family Physician: Caden Caballero
Chief Complaint
-
Shortness of breath
History of Present Illness
This is a 84-year-old female with past medical history of congestive heart failure, preserved EF, moderate to severe aortic stenosis, mild to moderate mitral regurgitation, CAD, hypertension, atrial fibrillation on anticoagulation, PAD presenting to
the emergency department with worsening shortness of breath and weight gain over the last 1 week.
Patient has a history of PAD and underwent bilateral angioplasties and stenting of the femorals over the last 6 weeks. She had 1 in September and then another 2 weeks ago. Since then patient noticed that she has been having increasing lower extremity
edema. 1 week ago she started having dyspnea on exertion. Over the last 1 week she has had orthopnea, difficulty breathing even at rest, PND. Any degree of exertion is made with fatigue and dyspnea. She denies have any chest pain. She reports
intermittent palpitations but states that she checks her heart rates with a wrist monitor hide she has not been in atrial fibrillation. She denies any fevers or chills. She denies any cough. She denies any other changes in her medications. She
states that she does take Lasix 20 mg as needed for weight gain. Initially after trying a dose a few days ago she did notice some weight loss however when she attempted a second dose she gained weight despite the diuretics.
In the emergency department the patient was afebrile, blood pressure was 130/70 with a pulse of 71 satting 97% on room air.
ECG shows a normal sinus rhythm 100 of 68 with T wave inversions in the anterior leads. Chest x-ray shows moderate interstitial pulmonary edema. Troponin was 0.196, BNP 27,000.
CBC shows a white count of 10, hemoglobin of 8.9 and blood count 312. Electrolytes are most unremarkable. Creatinine has increased to 1.74 previous baseline of 1.31-year ago.
Medical History
Past Medical History
Past Medical History: Reports Valvular Disease (Moderate to severe aortic stenosis, mild to moderate mitral regurgitation) and Other (atrial fibrillation, CAD with history of stent, CML, PAD, hypertension, GERD, hypercholesteremia, IBS)
Additional Past Medical History:
h/o pericarditis
Past Surgical History: Reports Other ( Cardiac, Orthopedic and Tonsilectomy)
Social History
Tobacco: Former Smoker
Alcohol: Occasional
Drug: None
Family History
Family History: Not pertinent
Allergies / Home Medications
Allergies reflects when Allergies were last updated in [facility].
Home Medications with original date entered in [facility]
Allergy/Medication List:
Allergies
Allergy/AdvReac Type Severity Reaction Status Date / Time
adhesive tape (Adhesive Tape) Allergy Rash Verified 10/24/24 15:34
Ohwnzkh-NHK-FyT Reductase Allergy SEVERE Verified 10/24/24 15:34
Inhibitor (Zzinumj-Lke-Nml MUSCLE
Reductase Inhibitor) CRAMPS
Sulfa (Sulfonamide Allergy generalized Verified 10/24/24 15:34
Antibiotics) body
swelling,
rsh
Home Medications
alprazolam 0.25 mg tablet 0.25 mg PO HSPRN PRN anxiety/sleep 07/12/18
pantoprazole 40 mg tablet,delayed release 40 mg PO DAILY Gastrointestinal Issue 07/12/18
alendronate 70 mg tablet 70 mg PO MO osteoporosis 02/27/21
imatinib 400 mg tablet 400 mg PO QPM leukemia 02/27/21
isosorbide mononitrate 30 mg tablet,extended release 24 hr 30 mg PO DAILY Heart Disease/Condition 02/27/21
apixaban 5 mg tablet (Eliquis) 5 mg PO BID #30 tabs 09/27/21
metoprolol succinate 50 mg tablet,extended release 24 hr 50 mg PO HS Paroxysmal atrial fibrillation 09/27/21
alirocumab 75 mg/mL subcutaneous pen injector (Praluent Pen) 75 mg SC Q2W 08/02/24
cholecalciferol (vitamin D3) 25 mcg (1,000 unit) tablet (Vitamin D3) 25 mcg PO DAILY 08/02/24
dapagliflozin propanediol 10 mg tablet (Farxiga) 10 mg PO DAILY 08/02/24
gabapentin 100 mg capsule 400 mg PO DAILY@1300 08/02/24
gabapentin 600 mg tablet 600 mg PO BID 08/02/24
hydralazine 25 mg tablet 75 mg PO BID 08/02/24
peg 400-propylene glycol (PF) 0.4 %-0.3 % eye drops in a dropperette (Systane (PF)) 1 drp BOTH EYES TIDPRN PRN dryness 08/02/24
therapeutic multivitamin 1 tab PO DAILY 08/02/24
vitamin B complex 1 cap PO DAILY 08/02/24
loperamide 2 mg tablet 2 mg PO BIDPRN PRN DIARRHEA 10/24/24
Review of Systems
-
History Source: Patient
Constitutional: Reports No Symptoms
EENT: Reports No Symptoms
Respiratory: Reports Trouble Breathing
Cardiac: Reports Palpitations
Abdomen/GI: Reports No Symptoms
: Reports No Symptoms
Musculoskeletal: Reports Edema
Skin: Reports No Symptoms
Neurological: Reports No Symptoms
Endocrine: Reports No Symptoms
Hematologic/Lymphatic: Reports No Symptoms
Psych: Reports No Symptoms
Physical Exam
Vital Signs
Vital Signs
Temp Pulse Resp BP Pulse Ox
98.2 F 71 14 130/68 97
10/24/24 15:30 10/24/24 18:45 10/24/24 18:15 10/24/24 18:45 10/24/24 18:15
Physical Exam
General: Well Developed, Well Nourished and Comfortable
HEENT: NormoCephalic, Anicteric, Moist mucous membranes, Atraumatic and PERRLA; No Oxygen
Respiratory: Crackles
Cardiac: S1/S2 and Regular Rhythm
Breast: Deferred by me
GI: Soft, Non Tender, Non Distended and Normal Bowel Sounds
Rectal: Deferred by Provider
Genito-urinary: Deferred by me
Musculoskeletal: No Clubbing, No Cyanosis, Edema, Left Lower Extremity (2+) and Edema, Right Lower Extremity (2+)
Skin: Warm
Neuro: AO x 3 and Nonfocal/grossly intact
Hematologic/Lymphatic: No Lymphadenopathy
Psych: Calm
Laboratory Results
-
10/24/24 15:54
10/24/24 15:54
Laboratory Results
PT 27.7 Sec (11.4-14.6) H 10/24/24 15:54
INR 2.58 10/24/24 15:54
APTT 44.2 Sec (23.4-35.0) H 10/24/24 15:54
Total Bilirubin 1.3 mg/dl (0.2-1.3) 10/24/24 15:54
AST 34 U/L (14-36) 10/24/24 15:54
ALT 21 U/L (0-35) 10/24/24 15:54
Alkaline Phosphatase 53 U/L (38-126) 10/24/24 15:54
Troponin I 0.196 ng/ml H* 10/24/24 15:54
Data Reviewed
-
Diagnostic Radiology: Image Personally Visualized and interpreted and Report Reviewed by me
Medical Tests (Nuc Med, Echo, EKG etc): Image Personally Visualized and interpreted
Lab Data: Labs Reviewed by me
Old Records: Reviewed
Impression/Plan
-
IMPRESSION:
84-year-old with past medical history of congestive heart failure with preserved EF of around 60% on previous echocardiogram, moderate to severe aortic stenosis, mild to moderate mitral regurgitation, CAD status post stenting, PAD, history of CML on
imatinib, atrial fibrillation on anticoagulation presents to the emergency department with shortness of breath, orthopnea/PND, increasing lower extremity edema and a 4 pound weight gain over the last 1 week despite attempting home dose of Lasix,
recently status post bilateral femoral angioplasties with stenting for peripheral arterial disease associated with claudication and discoloration of lower extremities which is now improved. Found to be in pulmonary edema on examination as well as
x-ray. She has elevated BNP to greater than 27,000. Troponin is also elevated at 0.19 without any chest pain or acute ischemic changes on ECG.
PLAN:
CHF exacerbation -weight gain, pulmonary edema, elevated BNP, ERNESTO all consistent with CHF exacerbation, known history of CHF with preserved EF and aortic stenosis which may be slightly worsening. Cannot rule out ischemia w/ trop +, however patient
has history of NIMI with even higher trop elevations.
- Admit to telemetry
- Lasix 40 mg IV twice daily for now
- Will hold Jardiance
- Continue meoprolol, Imdur, hydralazine
- Echo in a.m.
- Daily weights, ins and outs
- Cardiology consult
Nonischemic myocardial injury - No chest pain, rate controlled and no ischemia on ECG. TWI noted in ant. leads. on AC
- asa 324 x 1
- continue eliquis for now
- trend trops, if rising can change to IV heparin
- on alirocumab at home
ERNESTO - Cr 1.7, bun normal. Baseline was 1.1 in August. Recent contrast exposure could have resulted in intrarenal injury versus possibly cardiorenal.
- needs diuresis as patient is volume overloaded. Continue lasix
- u/a, lytes will be un-informative as patient is non-oliguric and is on diuretics
- kidney/bladder u/s
- nephrology consult
- avoid nephrotoxins (holdin farxiga)
Atrial fibrillation - rate controlled
- continue metoprolol
- continue eliquis
CML - stable
- continuee Gleevec
Anemia - h/o cml. Hgb 8.9, normo->macrocytic.
- check iron panel/ferritin, folate, b12
DVT PPX - on apixaban
Code Status - Full Code
[2024-10-24 20:00] VITALS: BP 143/70
[2024-10-24 20:09] LABS: Urine Albumin Negative (Neg - Trace); Urine Bilirubin Negative (Negative); Urine Character Clear (Clear); Urine Color Yellow; Urine Glucose 3+ (Negative); Urine Ketone Negative (Negative); Urine Leukocyte 1+ (Negative); Urine Nitrite Negative (Negative); Urine Occult Blood Negative (Negative); Urine Urobilinogen Negative (Neg - 1+)
[2024-10-24 20:17] LABS: Urine Red Blood Cell 0-2 /HPF (0-2); Urine Squamous Cell 0-2 /LPF (Few)
[2024-10-24 20:55] VITALS: BP 128/63; BMI 34.2
[2024-10-24 21:11] VITALS: BMI 34.2
[2024-10-24] MEDS: TOPROL XL 50 MG PO (21:14)
[2024-10-24] MEDS: NEURONTIN 600 MG PO (21:14)
[2024-10-24] MEDS: ELIQUIS 5 MG PO (21:14)
[2024-10-24] MEDS: APRESOLINE 75 MG PO (21:14)
[2024-10-24 22:57] LABS: Troponin I 0.182 ng/ml
[2024-10-24 23:29] VITALS: BP 123/60
[2024-10-25] VITALS (7 sets, daily range): BP systolic 101–133; BP diastolic 49–72; BMI 33.5
[2024-10-25] MEDS: XANAX 0.25 MG PO (02:06)
[2024-10-25 07:18] LABS: Blood Urea Nitrogen 23 mg/dl (7-17); Calcium 8.2 mg/dl (8.4-10.2); Carbon Dioxide 28 mmol/L (22-30); Chloride 106 mmol/L (98-107); Estimated Creatinine Clearance 26 ml/min; Glucose 90 mg/dl (70-99); HDL Cholesterol 45 mg/dl; Iron 37 ug/dl (37-170); LDL Cholesterol, Calculated 38 mg/dl; Potassium 3.5 mmol/L (3.5-5.1); Sodium 141 mmol/L (135-145); Total Cholesterol 97 mg/dl (50-199); Triglyceride 74 mg/dl (10-149); Very Low Density Lipoprotein 14 mg/dl (0-30)
[2024-10-25 07:19] LABS: Hematocrit 26.2 % (37.0-47.0); Hemoglobin 9.1 g/dL (12.0-16.0); Mean Corp Hgb Conc. 34.7 g/dL (33.0-37.0); Mean Corpuscular Hgb 32.4 pg (27.0-31.0); Mean Corpuscular Volume 93.2 fL (81.0-99.0); Mean Platelet Volume 9.6 fL (7.4-10.4); Platelet Count 299 10^3/uL (130-400); Red Blood Cell Count 2.81 10^6/uL (4.20-5.40); Red Cell Dist. Width 15.1 % (11.5-14.5); White Blood Cell Count 10.5 10^3/uL (4.8-10.8)
--- NOTE | 2024-10-25 07:25 | CON.CAR ---
Addendum entered and electronically signed by Abraham Whitehead MD 10/25/24 13:00:
84-year-old woman with a history of moderate to severe or severe aortic stenosis, admitted now with acute heart failure with preserved EF. Recent lower extremity arterial percutaneous interventions at the [facility] including
balloon [employer] bilaterally and stents x 2 in September and October, followed by increasing edema and ultimately shortness of breath. Hemoglobin is 8.9, currently on Eliquis and Plavix.
PMH/PSH: CAD, RCA PCI 2009, history of pericardial tamponade in 2018, PAD with bilateral [employer] and stents right lower extremity September and October 2024, paroxysmal A-fib on Eliquis, moderate to severe or severe with mean gradient 39 mmHg April 2024,
CML, DVT, iron deficiency anemia, hypertension and hyperlipidemia, carpal tunnel surgery
Current meds: Gabapentin 600 twice daily, hydralazine 75 twice daily, Gleevac 400 mg daily, isosorbide mononitrate 30 mg a day, metoprolol ER 50 at bedtime, pantoprazole 40 mg a day, furosemide 40 IV twice daily, apixaban 2.5 twice daily,
clopidogrel 75 mg a day, dapagliflozin 10 mg a day
121/55, pulse 71, respiratory to 18, afebrile, weight is 80.4 kg, was 84.9 kg on admission, 82.1 kg yesterday pleasant, no acute distress, seen in cardiac services, diminished breath sounds persistent bases, aortic stenosis murmur across the
precordium, carotid bruits abdomen benign still with 1+ to 2+ edema, distal pulses are somewhat diminished
Hemoglobin is 9.1, white count is 10.5, platelets are 299, BUN and creatinine are 23 and 1.6, Had been 1.1 September 01, was 1.7 yesterday, troponin is 0.182, proBNP had been greater than 27,000
Assessment:
Note below reviewed in detail and agree, unless otherwise specified
acute HF 10/24/24
ERNESTO
Elevated Troponin
CAD with prior PCI of RCA in 2009
History of pericarditis/pericardial tamponade in 2019
PAD s/p peripheral angioplasty B/L LE and RLE [employer] and stent 09/2024 and 10/2024
Paroxysmal Afib
Chronic Eliquis OAC
Moderate mean gradient 39 mmHg by echo 04/2024
h/o DVT 2018
History of CML
Iron deficiency anemia
HLD
HTN
Plan:
She is considerably improved with regards to volume status but still overloaded.
Will continue IV furosemide 40 mg twice daily.
Current dose of apixaban given her creatinine is 2.5 twice daily.
Await echocardiogram.
Given the onset of acute heart failure, presumed with preserved EF, she will need an evaluation for aortic valve replacement and hopefully be a good candidate for TAVR. Await echo. She had mild to moderate mitral regurgitation at last echo. If
renal function is adequate would favor cardiac catheterization during this hospital stay, but could be considered as an outpatient.
She is on dapagliflozin.
Follow renal function.
Original Note:
Consultation
Consultation Request
Date/Time Consultation Requested: 10/24/2024 at 2216
Date/Time Consultation Performed: 10/25/2024 at 0734
Requesting Provider: Dr. Vinson
Performing Provider: Dr. DENI Whitehead
Reason for Consultation: Acute HF, ERNESTO
Medical History
-
History of Present Illness:
Patient came to [facility] ER yesterday with increased SOB and orthopnea and was admitted with acute HF and cardiology has been consulted. Patient last saw Dr. Salcedo in the office on 08/04/2024 and at that time was feeling well, her history of AAS was
reviewed and the plan was for repeat echo in October. In the interim the patient continue to follow with her vascular surgery team that includes NORMA powers at [facility]. Patient had previous bilateral lower extremity angioplasty and had noticed increasing
pain and discoloration of her feet leading to bilateral lower extremity balloon angioplasty and then returning for an RLE [employer] and stent carried out over 2 procedures in September and October. Patient feels that in between the procedures she started noticed
increased LE edema along with increasing abdominal distention. Patient has a history of chronic HFpEF and was supposed to take Lasix 20 mg daily PRN, but for the most part avoided ever taking a dose so she was worried it would hurt her renal
function. Patient had progressive increase in LE edema and then symptoms of orthopnea and so she finally asked her daughter to bring her to the ER last night. proBNP greater than 27,000. She is also noted to have a drop in Hgb that was her
previous on 09/01/2024 and is now down to 8.9, but she denies any BRBPR or melena. Patient does have a history of GIB and is currently on a regimen of Eliquis and Plavix following PAD interventions as noted.
PMH:
CAD with prior PCI of RCA in 2009
History of pericarditis/pericardial tamponade in 2018
PAD s/p peripheral angioplasty B/L LE and RLE [employer] and stent 09/2024 and 10/2024
Paroxysmal Afib
Chronic Eliquis OAC
Moderate mean gradient 39 mmHg by echo 04/2024
h/o DVT 2018
History of CML
Iron deficiency anemia
HLD
HTN
Past Medical History
Past Medical History: Other (in HPI)
Past Surgical History: Other (Tonsillectomy 1948, D&C 1982, left knee scope 2015, wisdom teeth extraction, bilateral cataract surgery, right knee meniscus surgery 2018, procedure for prolapsing hemorrhoids in 2018, carpal tunnel surgery 2019, right
knee scope 2017, thyroid biopsy 2019, epidural injection)
Social History
Tobacco: Non-Smoker
Alcohol: None
Drug: None
Personal:
Living: Alone
Employment: Retired
Family History
Family History: Other (Father from heart disease, mother from heart disease)
Allergies / Home Medications
Allergy/AdvReac Type Severity Reaction Status Date / Time
adhesive tape (Adhesive Tape) Allergy Rash Verified 10/24/24 15:34
Wffacfi-YZH-SsQ Reductase Allergy SEVERE Verified 10/24/24 15:34
Inhibitor (Jjojdnx-Ezh-Mvk MUSCLE
Reductase Inhibitor) CRAMPS
Sulfa (Sulfonamide Allergy generalized Verified 10/24/24 15:34
Antibiotics) body
swelling,
rsh
�Medication �Instructions �Recorded �Confirmed �Type
alprazolam 0.25 mg tablet 0.25 mg PO HSPRN PRN anxiety/sleep 07/12/18 10/24/24 History
pantoprazole 40 mg tablet,delayed 40 mg PO DAILY Gastrointestinal 07/12/18 10/24/24 History
release Issue
alendronate 70 mg tablet 70 mg PO MO osteoporosis 02/27/21 10/24/24 History
imatinib 400 mg tablet 400 mg PO QPM leukemia 02/27/21 10/24/24 History
isosorbide mononitrate 30 mg 30 mg PO DAILY Heart 02/27/21 10/24/24 History
tablet,extended release 24 hr Disease/Condition
apixaban 5 mg tablet (Eliquis) 5 mg PO BID #30 tabs 09/27/21 10/24/24 Rx
metoprolol succinate 50 mg 50 mg PO HS Paroxysmal atrial 09/27/21 10/24/24 History
tablet,extended release 24 hr fibrillation
alirocumab 75 mg/mL subcutaneous 75 mg SC Q2W 08/02/24 10/24/24 History
pen injector (Praluent Pen)
cholecalciferol (vitamin D3) 25 25 mcg PO DAILY 08/02/24 10/24/24 History
mcg (1,000 unit) tablet (Vitamin
D3)
dapagliflozin propanediol 10 mg 10 mg PO DAILY 08/02/24 10/24/24 History
tablet (Farxiga)
gabapentin 100 mg capsule 400 mg PO DAILY@1300 08/02/24 10/24/24 History
gabapentin 600 mg tablet 600 mg PO BID 08/02/24 10/24/24 History
hydralazine 25 mg tablet 75 mg PO BID 08/02/24 10/24/24 History
peg 400-propylene glycol (PF) 0.4 1 drp BOTH EYES TIDPRN PRN dryness 08/02/24 10/24/24 History
%-0.3 % eye drops in a dropperette
(Systane (PF))
therapeutic multivitamin 1 tab PO DAILY 08/02/24 10/24/24 History
vitamin B complex 1 cap PO DAILY 08/02/24 10/24/24 History
loperamide 2 mg tablet 2 mg PO BIDPRN PRN DIARRHEA 10/24/24 10/24/24 History
Review of Systems
-
History Source: Patient and Family (daughter, Ayla, by phone)
All other systems: Negative unless noted
Physical Exam
Vital Signs
Temp Pulse Resp BP Pulse Ox
98.9 F 71 18 109/49 95
10/25/24 03:59 10/25/24 03:59 10/25/24 03:59 10/25/24 03:59 10/25/24 03:59
GEN: NAD. AAOx3
HEENT: EOMI, MMM
LUNGS: RA. B/L rales without wheeze
CV: SR on tele. Reg, 3/6 murmur
ABD: mildly distended
EXT: +2 B/L LE edema. No lesions or wounds
NEURO: Gross non-focal
SKIN: Warm, dry and pink. No rash
Lab Results
10/25/24 05:55
10/25/24 05:55
Troponin I 0.182 ng/ml H* 10/24/24 22:26
Ijz-W-Sepgkopsewl Pept > 62907 pg/ml 10/24/24 15:54
Impression / Plan
-
PCP: Dr. Caballero
Cardiology: Dr. Salcedo
Heme/Onc: Dr. Joyce
Assessment:
Admitted with SOB and acute HF 10/24/24
Acute HFpEF
ERNESTO
Elevated Troponin
CAD with prior PCI of RCA in 2009
History of pericarditis/pericardial tamponade in 2018
PAD s/p peripheral angioplasty B/L LE and RLE [employer] and stent 09/2024 and 10/2024
Paroxysmal Afib
Chronic Eliquis OAC
Moderate mean gradient 39 mmHg by echo 04/2024
h/o DVT 2018
History of CML
Iron deficiency anemia
HLD
HTN
Catheterization in [place] December 2009: 85% stenosis with luminal irregularities remaining arteries, status post 3.5 mm Xience drug-eluting stent to mid RCA
Lexiscan sestamibi stress test June 2021: Predominantly fixed defect in basal inferior, mid inferior, apex, apical inferior segments, ejection fraction 43%
Echo 01/02/2023: Ejection fraction 54%, mild to moderate LVH, moderate aortic stenosis with mean gradient of 21 mmHg valve area 0.9 cm, mild MR
Echo 04/10/2023: EF 53%, stage II diastolic dysfunction, normal RV size and function, mild to moderate MR, moderate peak/mean 40/25 mmHg and PITO 1.5 cm sq
Echo 04/07/2024: EF 60 to 65%, mild to moderate MR, moderate to severe peak/mean 66/39 mmHg, mild to moderate MR
Plan:
-Patient came to [facility] ER yesterday with increased SOB and orthopnea and was admitted with acute HF and cardiology has been consulted. Patient last saw Dr. Salcedo in the office on 08/04/2024 and at that time was feeling well, her history of AAS was
reviewed and the plan was for repeat echo in October. In the interim the patient continue to follow with her vascular surgery team that includes NORMA powers at [facility]. Patient had previous bilateral lower extremity angioplasty and had noticed increasing
pain and discoloration of her feet leading to bilateral lower extremity balloon angioplasty and then returning for an RLE [employer] and stent carried out over 2 procedures in September and October. Patient feels that in between the procedures she started noticed
increased LE edema along with increasing abdominal distention. Patient has a history of chronic HFpEF and was supposed to take Lasix 20 mg daily PRN, but for the most part avoided ever taking a dose so she was worried it would hurt her renal
function. Patient had progressive increase in LE edema and then symptoms of orthopnea and so she finally asked her daughter to bring her to the ER last night. proBNP greater than 27,000. She is also noted to have a drop in Hgb that was her
previous -05/06 on 09/01/2024 and is now down to 8.9, but she denies any BRBPR or melena. Patient does have a history of GIB and is currently on a regimen of Eliquis and Plavix following PAD interventions as noted.
-ECG reviewed by me new anterolateral ST-T wave changes compared to ECG from 07/2024, also reviewed by me.
-Patient with acute HFpEF and reports symptomatic improvement with Lasix 40 mg IV x 1 in the ER overnight and is currently ordered Lasix 40 mg IV BID. Patient was taking Lasix 20 mg PO daily PRN prior to admission, but for the most part was
virtually never taking any doses as she was worried about her renal function. Follow Cre closely and consider reducing to Lasix 40 mg IV daily.
-Reviewed with patient that she will likely need a more standardized Lasix dosing regimen upon discharge
-Check echo, I took care of canceling the patient's outpatient echo and she is currently scheduled for an echo at the hospital today
-EF previously preserved at 60 to 65% by echo 04/07/2024
-Outpatient dose of Toprol XL 50 mg daily has been continued
-Outpatient dose of hydralazine 75 mg BID has been continued
-Outpatient dose of Imdur ER 30 mg daily has been continued
-Outpatient dose of Farxiga 10 mg daily was resumed by me following review of labs on 10/25/2024
-Patient is not chronically on aldosterone antagonist. Potassium is 3.3 on admission. No indication the patient has previously been on aldosterone antagonist, will consider adding
-Patient with known moderate to severe AAS by echo 04/07/2024, recheck echo today as planned. Patient has not previously been considered for TAVR, but after discussing with the patient's daughter by phone we will review with patient and she may be
interested.
-Talked with patient's daughter, Ayla, who is a nurse in [place] by phone for 14:43 min today. We reviewed hospitalization thus far and most recent echo and lab studies. We discussed echo and ECG changes and possible workup including cardiac
cath in anticipation of TAVR and outpatient CT scan all pending her ongoing renal function.
-Patient with h/o CML and iron deficiency anemia. No indication of acute GIB, but Hgb has dropped almost 2 g in the last 2 months and this seems to coincide with initiation of Plavix to her chronic Eliquis following peripheral intervention at [facility]
last month and again earlier this month. Patient was heme-negative in the ER. Labs reviewed by me shows that her TIBC actually falls in the normal range although she is low normal for iron levels and is below normal for percent saturation.
Patient has had iron infusions in the past, would consider adding iron PO.
-Outpatient dose of Plavix 75 mg daily resumed by me on 10/25/2024 given lack of active GIB and recent peripheral intervention including RLE stent.
-ECG abnormal with anterolateral T wave changes. Initial troponin elevated at 0.196 and trending down thereafter. Suspect this could be nonischemic myocardial injury troponin elevation as there has been no chest pain, but await results of echo.
[2024-10-25 07:27] LABS: Percent Saturation 12 % (20-50); Total Iron Binding Capacity 295 ug/dl (265-497)
[2024-10-25 07:49] LABS: TSH Reflex To Free T4 2.92 uIU/ml (0.47-4.68)
[2024-10-25] MEDS: LASIX 40 MG IV ×2 (08:17→16:00)
[2024-10-25] MEDS: APRESOLINE 75 MG PO (08:18)
[2024-10-25] MEDS: NEURONTIN 600 MG PO ×2 (08:18→20:02)
[2024-10-25] MEDS: ELIQUIS 5 MG PO (08:18)
[2024-10-25] MEDS: PROTONIX 40 MG PO (08:18)
[2024-10-25] MEDS: IMDUR (EXTENDED RELEASE) 30 MG PO (08:18)
[2024-10-25 08:24] LABS: Folate > 20.0 ng/ml (2.76-20); Vitamin B12 812 pg/ml (239-931)
--- NOTE | 2024-10-25 09:14 | W.PN.HOSP.TC ---
Today's Communication/Plan
-
c./w Lasix
Monitor renal, do bladder scan
Assessment / Plan
Assessment / Plan
Physical Exam
General: Well Developed, Well Nourished and Comfortable
HEENT: NormoCephalic, Anicteric, Moist mucous membranes, Atraumatic and PERRLA; No Oxygen
Respiratory: Crackles
Cardiac: S1/S2 and Regular Rhythm
Breast: Deferred by me
GI: Soft, Non Tender, Non Distended and Normal Bowel Sounds
Rectal: Deferred by Provider
Genito-urinary: Deferred by me
Musculoskeletal: No Clubbing, No Cyanosis, Edema, Left Lower Extremity (2+) and Edema, Right Lower Extremity (2+)
Skin: Warm
Neuro: AO x 3 and Nonfocal/grossly intact
Hematologic/Lymphatic: No Lymphadenopathy
Psych: Calm
Acute on chonic HFpEF
CHF exacerbation -weight gain, pulmonary edema, elevated BNP, ERNESTO all consistent with CHF exacerbation, known history of CHF with preserved EF and aortic stenosis which may be slightly worsening. however patient has history of NIMI with even higher
trop elevations.
- nonischemic myocardial injury troponin elevation
she feels better, no chest pain
c/w Lasix, monitor renal function
Appreciate cardiology help
ERNESTO - Cr 1.7, bun normal. Baseline was 1.1 in August. Recent contrast exposure could have resulted in intrarenal injury versus possibly cardiorenal.
- needs diuresis as patient is volume overloaded. Continue Lasix
- u/a, lytes will be un-informative as patient is non-oliguric and is on diuretics
- kidney/bladder u/s
- nephrology consulted
- avoid nephrotoxins
Paroxysmal Atrial fibrillation - rate controlled
- continue metoprolol
- continue Eliquis
CML - stable
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
- continue Gleevec
normal iron
Will give blood if HGB less than 8
hypokalemia
DVT PPX - on apixaban
Code Status - Full Code
Total time spent to see the patient, examine the patient, review data and lab result, discuss treatment plan with patient, nursing staff around 55 minutes
Anticipated Discharge: > 48 hours
Subjective/Interval History
-
Date of Service: October 25, 2024
Feels better
No chest pain
Objective Data
-
Labs:
Laboratory Results
10/25/24
05:55
WBC 10.5
Hgb 9.1 L
Hct 26.2 L
Plt Count 299
Sodium 141
Potassium 3.5
Chloride 106
Carbon Dioxide 28
BUN 23 H
Creatinine 1.6 H
Glucose 90
Calcium 8.2 L
Vital Signs:
Vital Signs
Temp Pulse Resp BP Pulse Ox
98.6 F 71 18 121/55 96
10/25/24 07:00 10/25/24 07:00 10/25/24 07:00 10/25/24 07:00 10/25/24 07:00
I&O
10/24/24 10/25/24 10/26/24
06:59 06:59 06:59
Output Total 1275 / 1275
Balance -1275 / -1275
[2024-10-25] MEDS: PLAVIX 75 MG PO (11:17)
[2024-10-25] MEDS: FARXIGA 10 MG PO (11:17)
[2024-10-25] MEDS: TYLENOL 650 MG PO ×2 (12:57→22:26)
--- NOTE | 2024-10-25 14:19 | W.CON.NEPH ---
Consultation
-
Date/Time Consultation Requested: October 24, 2024 at 10 PM
Date/Time Consultation Performed: October 25, 2024 at 1:30 PM
Requesting Provider: Dr. Vinson
Performing Provider: Dr. Smith
Reason for Consultation: Acute on chronic kidney disease
Medical History
-
Chief Complaint: Acute on chronic kidney disease
History of Present Illness:
84-year-old female with past medical history of congestive heart failure, preserved EF, moderate to severe aortic stenosis, mild to moderate mitral regurgitation, CAD, hypertension, atrial fibrillation on anticoagulation, PAD presenting to the
emergency department with worsening shortness of breath and weight gain over the last 1 week.
Patient has a history of PAD and underwent bilateral angioplasties and stenting of the femorals over the last 6 weeks. She had 1 in September and then another 2 weeks ago. Since then patient noticed that she has been having increasing lower extremity
edema. 1 week ago she started having dyspnea on exertion.
She also had a 5 pound weight gain in about 5 days. She takes Lasix on an as needed basis.
Renal consultation for acute kidney injury
Past Medical History
congestive heart failure, preserved EF, moderate to severe aortic stenosis, mild to moderate mitral regurgitation, CAD, hypertension, atrial fibrillation on anticoagulation, PAD
Social History
Tobacco: Non-Smoker
Alcohol: None
Family History
Family History: Not Pertinent
Allergies / Home Medications
Allergy/AdvReac Type Severity Reaction Status Date / Time
adhesive tape (Adhesive Tape) Allergy Rash Verified 10/24/24 15:34
Buxtbrp-MZZ-DbU Reductase Allergy SEVERE Verified 10/24/24 15:34
Inhibitor (Fkzvkmo-Nod-Yue MUSCLE
Reductase Inhibitor) CRAMPS
Sulfa (Sulfonamide Allergy generalized Verified 10/24/24 15:34
Antibiotics) body
swelling,
rsh
�Medication �Instructions �Recorded �Confirmed �Type
alprazolam 0.25 mg tablet 0.25 mg PO HSPRN PRN anxiety/sleep 07/12/18 10/24/24 History
pantoprazole 40 mg tablet,delayed 40 mg PO DAILY Gastrointestinal 07/12/18 10/24/24 History
release Issue
alendronate 70 mg tablet 70 mg PO MO osteoporosis 02/27/21 10/24/24 History
imatinib 400 mg tablet 400 mg PO QPM leukemia 02/27/21 10/24/24 History
isosorbide mononitrate 30 mg 30 mg PO DAILY Heart 02/27/21 10/24/24 History
tablet,extended release 24 hr Disease/Condition
apixaban 5 mg tablet (Eliquis) 5 mg PO BID #30 tabs 09/27/21 10/24/24 Rx
metoprolol succinate 50 mg 50 mg PO HS Paroxysmal atrial 09/27/21 10/24/24 History
tablet,extended release 24 hr fibrillation
alirocumab 75 mg/mL subcutaneous 75 mg SC Q2W 08/02/24 10/24/24 History
pen injector (Praluent Pen)
cholecalciferol (vitamin D3) 25 25 mcg PO DAILY 08/02/24 10/24/24 History
mcg (1,000 unit) tablet (Vitamin
D3)
dapagliflozin propanediol 10 mg 10 mg PO DAILY 08/02/24 10/24/24 History
tablet (Farxiga)
gabapentin 100 mg capsule 400 mg PO DAILY@1300 08/02/24 10/24/24 History
gabapentin 600 mg tablet 600 mg PO BID 08/02/24 10/24/24 History
hydralazine 25 mg tablet 75 mg PO BID 08/02/24 10/24/24 History
peg 400-propylene glycol (PF) 0.4 1 drp BOTH EYES TIDPRN PRN dryness 08/02/24 10/24/24 History
%-0.3 % eye drops in a dropperette
(Systane (PF))
therapeutic multivitamin 1 tab PO DAILY 08/02/24 10/24/24 History
vitamin B complex 1 cap PO DAILY 08/02/24 10/24/24 History
loperamide 2 mg tablet 2 mg PO BIDPRN PRN DIARRHEA 10/24/24 10/24/24 History
clopidogrel 75 mg tablet (Plavix) 75 mg PO DAILY 10/25/24 10/25/24 History
Review of Systems
-
Lower extremity edema with shortness of breath improving
All other systems: Negative unless noted
Physical Exam
Vital Signs
Vital Signs
Temp Pulse Resp BP Pulse Ox
98.6 F 77 18 133/67 95
10/25/24 11:00 10/25/24 11:00 10/25/24 11:00 10/25/24 11:00 10/25/24 11:00
Lab Results
WBC 10.5 10^3/uL (4.8-10.8) 10/25/24 05:55
RBC 2.81 10^6/uL (4.20-5.40) L 10/25/24 05:55
Hgb 9.1 g/dL (12.0-16.0) L 10/25/24 05:55
Hct 26.2 % (37.0-47.0) L 10/25/24 05:55
Plt Count 299 10^3/uL (130-400) 10/25/24 05:55
Sodium 141 mmol/L (135-145) 10/25/24 05:55
Potassium 3.5 mmol/L (3.5-5.1) 10/25/24 05:55
Chloride 106 mmol/L (98-107) 10/25/24 05:55
Carbon Dioxide 28 mmol/L (22-30) 10/25/24 05:55
BUN 23 mg/dl (7-17) H 10/25/24 05:55
Creatinine 1.6 mg/dL (0.6-1.0) H 10/25/24 05:55
eGFR 32.00 10/25/24 05:55
Glucose 90 mg/dl (70-99) 10/25/24 05:55
Calcium 8.2 mg/dl (8.4-10.2) L 10/25/24 05:55
Sme-H-Dmntsqovdlr Pept > 73687 pg/ml 10/24/24 15:54
Albumin 3.9 g/dl (3.5-5.0) 10/24/24 15:54
Physical Exam
General no acute distress
HEENT no cephalic atraumatic extraocular muscle intact no scleral icterus no JVD neck supple
lungs mild rales at the bases
heart regular S1-S2 positive
abdomen soft nontender positive bowel sounds
extremities 1-2 +edema pulses present bilateral
Neurologically nonfocal alert and oriented x 3
Skin no lesions no abrasions no petechiae
Psych normal affect no bizarre behavior
Data Reviewed
-
Radiology: Image Personally Visualized and interpreted
Ultrasound: Image Personally Visualized and interpreted
Labs: Labs Reviewed by me, Discussed with Patient and Discussed with Family
Assessment/Plan
-
84-year-old female with past medical history of congestive heart failure, preserved EF, moderate to severe aortic stenosis, mild to moderate mitral regurgitation, CAD, hypertension, atrial fibrillation on anticoagulation, PAD presenting to the
emergency department with worsening shortness of breath and weight gain over the last 1 week.
Patient has a history of PAD and underwent bilateral angioplasties and stenting of the femorals over the last 6 weeks. She had 1 in September and then another 2 weeks ago. Since then patient noticed that she has been having increasing lower extremity
edema. 1 week ago she started having dyspnea on exertion.
Impression.
Acute on chronic kidney disease stage IIIa baseline creatinine of 1.2/1.3
Admitting creatinine 1.7
CHF
Weight gain
Edema
Anemia
PAD status post contrast
Valvular disease
Plan.
Acuity multifactorial/cardiorenal/IV contrast.
Agree with IV diuretics
Daily weights
2 g sodium restriction
Discussed risk benefits of proceeding with another study requiring contrast.
AM labs
Discussed with family at bedside
[2024-10-25] MEDS: NON-FORMULARY ITEM 75 MG SC (14:55)
--- NOTE | 2024-10-25 16:59 | CM ---
Alert awake oriented patient who
lives alone in a 1 story home with 1 steps to enter. She is independent in activates of daily living.She does drive .She uses a walker and cane.
[facility] in past . No SNF hx
Pharmacy [facility]
PCP Dr Caballero
PLAN Home with possible VN
--- NOTE | 2024-10-25 17:16 | CM ---
CM sent home health referral to [facility] per pt request.
Will follow up in AM for acceptance of services.
[2024-10-25] MEDS: NON-FORMULARY ITEM 1 UNIT PO (17:35)
[2024-10-25] MEDS: APRESOLINE PO (19:47)
[2024-10-25] MEDS: ELIQUIS 2.5 MG PO (20:02)
[2024-10-25] MEDS: TOPROL XL 50 MG PO (22:26)
[2024-10-26] VITALS (7 sets, daily range): BP systolic 99–121; BP diastolic 46–70; BMI 32.7
[2024-10-26 07:54] LABS: Hematocrit 25.7 % (37.0-47.0); Hemoglobin 8.8 g/dL (12.0-16.0); Mean Corp Hgb Conc. 34.2 g/dL (33.0-37.0); Mean Corpuscular Volume 96.3 fL (81.0-99.0); Mean Platelet Volume 9.8 fL (7.4-10.4); Platelet Count 272 10^3/uL (130-400); Red Blood Cell Count 2.67 10^6/uL (4.20-5.40); Red Cell Dist. Width 15.5 % (11.5-14.5)
[2024-10-26 08:00] LABS: Blood Urea Nitrogen 21 mg/dl (7-17); Calcium 8.2 mg/dl (8.4-10.2); Carbon Dioxide 30 mmol/L (22-30); Chloride 102 mmol/L (98-107); Estimated Creatinine Clearance 29 ml/min; Glucose 93 mg/dl (70-99); Sodium 141 mmol/L (135-145); eGFR 37.56
[2024-10-26] MEDS: ELIQUIS 2.5 MG PO ×2 (08:30→20:18)
[2024-10-26] MEDS: NEURONTIN 600 MG PO ×2 (08:30→20:18)
[2024-10-26] MEDS: APRESOLINE 75 MG PO (08:30)
[2024-10-26] MEDS: IMDUR (EXTENDED RELEASE) 30 MG PO (08:31)
[2024-10-26] MEDS: PROTONIX 40 MG PO (08:31)
[2024-10-26] MEDS: FARXIGA 10 MG PO (08:31)
[2024-10-26] MEDS: PLAVIX 75 MG PO (08:31)
[2024-10-26] MEDS: LASIX 40 MG IV ×2 (08:31→15:28)
[2024-10-26] MEDS: KCL 40 MEQ PO ×2 (08:33→20:18)
--- NOTE | 2024-10-26 09:08 | W.PN.HOSP.TC ---
Today's Communication/Plan
-
Lasix
Replace K
Reduce Gabapentin
No indication for blood transfusion
Oral Ceftin for UTI
Assessment / Plan
Assessment / Plan
Physical Exam
General: Well Developed, Well Nourished and Comfortable
HEENT: NormoCephalic, Anicteric, Moist mucous membranes, Atraumatic and PERRLA; No Oxygen
Respiratory: much less rales
Cardiac: S1/S2 and Regular Rhythm
Breast: Deferred by me
GI: Soft, Non Tender, Non Distended and Normal Bowel Sounds
Rectal: no bleeding
Genito-urinary: no hematuria
Musculoskeletal: No Clubbing, No Cyanosis, Edema, Left Lower Extremity (2+) and Edema, Right Lower Extremity (2+)
Skin: Warm
Neuro: AO x 3 and Nonfocal/grossly intact
Psych: Calm
Acute on chronic HFpEF
CHF exacerbation -weight gain, pulmonary edema, elevated BNP, ERNESTO all consistent with CHF exacerbation, known history of CHF with preserved EF and aortic stenosis which may be slightly worsening. - nonischemic myocardial injury troponin elevation
She feels better, no chest pain
Lost weight
c/w Lasix, monitor renal function
Appreciate cardiology help
# UTI
will give oral antibiotic
# hypokalemia
Replace
ERNESTO -
Creatinine is improving
- nephrology consulted
- avoid nephrotoxins
Paroxysmal Atrial fibrillation - rate controlled
- continue metoprolol
- continue Eliquis, re-dose according to renal function
CML - stable
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
- continue Gleevec
normal iron
Primary oncology Dr Joyce
Will give blood if HGB less than 8
# non specific neuropathy
on gabapentin, I reduced the doses according to renal function
# Osteoporosis, no Fosamax while in hospital
DVT PPX - on apixaban
Code Status - Full Code
Total time spent to see the patient, examine the patient, review data and lab result, discuss treatment plan with patient, nursing staff around 55 minutes
Anticipated Discharge: 24 - 48 hours
Subjective/Interval History
-
Date of Service: October 26, 2024
No chest pain
No sob
Objective Data
-
Labs:
Laboratory Results
10/26/24 10/26/24
05:45 05:55
WBC 12.0 H
Hgb 8.8 L
Hct 25.7 L
Plt Count 272
Sodium 141
Potassium 3.0 L
Chloride 102
Carbon Dioxide 30
BUN 21 H
Creatinine 1.4 H
Glucose 93
Calcium 8.2 L
Vital Signs:
Vital Signs
Temp Pulse Resp BP Pulse Ox
98.4 F 71 20 120/50 96
10/26/24 08:00 10/26/24 08:00 10/26/24 08:00 10/26/24 08:00 10/26/24 08:00
I&O
10/25/24 10/26/24 10/27/24
06:59 06:59 06:59
Intake Total 960 / 960
Output Total 1275 / 1275 3100 / 3100
Balance -1275 / -1275 -2140 / -2140
[2024-10-26] MEDS: CEFTIN 250 MG PO ×2 (10:31→20:18)
--- NOTE | 2024-10-26 10:36 | W.PN.CARDCBS ---
Addendum entered and electronically signed by Abraham Whitehead MD 10/26/24 19:03:
Patient with UTI, stop Farxiga
Addendum entered and electronically signed by Abraham Whitehead MD 10/26/24 19:02:
84-year-old woman with a history of moderate to severe or severe aortic stenosis, admitted now with acute heart failure with preserved EF. Recent lower extremity arterial percutaneous interventions at the [facility] including
balloon SUPERVISOR DRYING AND SOFTENING bilaterally and stents x 2 to right SFA in September and October, followed by increasing edema and ultimately shortness of breath. Anemic on Eliquis and Plavix at admission.
PMH/PSH: CAD, RCA PCI 2009, history of pericardial tamponade in 2018, PAD with bilateral SUPERVISOR DRYING [employer] SOFTENING and stents right lower extremity September and October 2024, paroxysmal A-fib on Eliquis, moderate to severe or severe with mean gradient 39 mmHg April 2024,
CML, DVT, iron deficiency anemia, hypertension and hyperlipidemia, carpal tunnel surgery
Current meds: Neurontin 600 twice daily, hydralazine 75 mg twice daily, isosorbide mononitrate 30 mg daily, metoprolol ER 50 mg daily, pantoprazole 40 mg a day, furosemide 40 mg IV twice daily, apixaban 2.5 mg twice daily, Plavix 75 mg a day,
dapagliflozin 10 mg a day, Gleevac, potassium 40 meq twice daily
120/50, pulse 71, respiratory 20, afebrile, pleasant, vivacious, offering no complaints head neck exam unremarkable, lungs are fairly clear, neck veins okay, aortic stenosis murmur, some edema left greater than right
Renal ultrasound: Mild left hydronephrosis, no postvoid residual
Echo 10/25/2024: EF 55%, mild LVH, normal RV, moderate MR, moderate-severe aortic stenosis, mean gradient 36 mmHg, aortic valve area 1.0, mild TR, pulmonary artery systolic pressure 45-50 mmHg
Hemoglobin is 8.8, was 9.1, was 11.2 and July, BUN and creatinine are 21 and 1.4, baseline 1.1-1.2, potassium is 3
Impression:
Acute HFpEF
Severe aortic stenosis with moderate mitral regurgitation
ERNESTO
Elevated Troponin
CAD with prior PCI of RCA in 2009
History of pericarditis/pericardial tamponade in 2018
PAD s/p peripheral angioplasty B/L LE and RLE SUPERVISOR DRYING AND SOFTENING and stent 09/2024 and 10/2024
Paroxysmal Afib
Chronic Eliquis OAC
Moderate mean gradient 39 mmHg by echo 04/2024
h/o DVT 2018
History of CML
Iron deficiency anemia
HLD
HTN
Plan:
Given aortic stenosis, we should target a systolic blood pressure no lower than 130 mmHg. She is on isosorbide and hydralazine, vasodilators that should be used cautiously with aortic stenosis. Will decrease hydralazine and stop nitrates.
Probably best to avoid spironolactone given changes in renal function. Continue Farxiga if okay with nephrology.
Given heart failure and echo results, it is probably best to begin TAVR evaluation presuming prognosis for CML is reasonable.. Cardiac catheterization would be the next step if okay from renal standpoint. Given that she has had recent peripheral
arterial intervention, she would rather have catheterization performed as an outpatient. She has follow-up planned with Dr. Salcedo late this month.
Volume status is improved. Continue IV furosemide for now. Probably convert to oral diuretics in 24 to 48 hours.
Her anemia has progressed, she is on apixaban and clopidogrel. We may need to de-escalate her anticoagulation regimen. Does she need iron?
We will continue to follow
Original Note:
Today's Communication / Plan
-
Cont Lasix 40 mg IV BID and hold dose in AM until Cre resulted
Stop Farxiga for now due to UTI
Impression / Plan
-
PCP: Dr. Caballero
Cardiology: Dr. Salcedo
Heme/Onc: Dr. Joyce
Assessment:
Admitted with SOB and acute HF 10/24/24
Acute HFpEF
ERNESTO
Elevated Troponin
CAD with prior PCI of RCA in 2009
History of pericarditis/pericardial tamponade in 2018
PAD s/p peripheral angioplasty B/L LE and RLE SUPERVISOR DRYING AND SOFTENING and stent 09/2024 and 10/2024
Paroxysmal Afib
Chronic Eliquis OAC
Moderate mean gradient 39 mmHg by echo 04/2024
h/o DVT 2018
History of CML
Iron deficiency anemia
HLD
HTN
Catheterization in [place] December 2009: 85% stenosis with luminal irregularities remaining arteries, status post 3.5 mm Xience drug-eluting stent to mid RCA
Lexiscan sestamibi stress test June 2021: Predominantly fixed defect in basal inferior, mid inferior, apex, apical inferior segments, ejection fraction 43%
Echo 01/02/2023: Ejection fraction 54%, mild to moderate LVH, moderate aortic stenosis with mean gradient of 21 mmHg valve area 0.9 cm, mild MR
Echo 04/10/2023: EF 53%, stage II diastolic dysfunction, normal RV size and function, mild to moderate MR, moderate peak/mean 40/25 mmHg and PITO 1.5 cm sq
Echo 04/07/2024: EF 60 to 65%, mild to moderate MR, moderate to severe peak/mean 66/39 mmHg, mild to moderate MR
Echo 10/25/2024: EF 55%, mild concentric LVH, moderate MR, moderate to severe mean gradient 36 mmHg and PITO 1 cm sq, mild TR with PAP 45 to 50 mmHg
Plan:
-Weight is down 5 lbs overnight and 9 lbs total this admission with Lasix 40 mg IV BID diuresis. Patient also reports symptomatic improvement.
-Patient was taking Lasix 20 mg PO daily PRN prior to admission, but for the most part was virtually never taking any doses as she was worried about her renal function. Follow Cre closely and consider reducing to Lasix 40 mg IV daily on 10/27/2024.
-Labs reviewed by me 10/26/2024 and Cre has improved to 1.4
-Echo results reviewed by me and summarized above. Echo results also reviewed with the patient including stable moderate to severe . Also reviewed with the patient the conversation I had with her daughter on 10/25/2024 regarding workup for TAVR.
We discussed cardiac catheterization this admission vs outpatient. We also discussed that CT scans will need to be outpatient. If patient is interested we will refer to TAVR clinical research nurse, she is asking for time to think and will let us know.
-Outpatient dose of Toprol XL 50 mg daily has been continued
-Outpatient dose of hydralazine 75 mg BID has been continued
-Outpatient dose of Imdur ER 30 mg daily has been continued
-Outpatient dose of Farxiga 10 mg daily was initially continued, but now UTI so will stop.
-Patient is not chronically on aldosterone antagonist. Potassium is 3.3 on admission. No indication the patient has previously been on aldosterone antagonist, will consider adding
-Patient with h/o CML and iron deficiency anemia. Hgb lower now that she is on Plavix and Eliquis after recent PAD interventions at [place].
-Outpatient dose of Plavix 75 mg daily has been continued
-ECG abnormal with anterolateral T wave changes. Initial troponin elevated at 0.196 and trending down thereafter. No WMA on echo. Suspect this could be nonischemic myocardial injury troponin elevation.
HPI: Patient came to [facility] ER yesterday with increased SOB and orthopnea and was admitted with acute HF and cardiology has been consulted. Patient last saw Dr. Salcedo in the office on 08/04/2024 and at that time was feeling well, her history of AAS
was reviewed and the plan was for repeat echo in October. In the interim the patient continue to follow with her vascular surgery team that includes NORMA powers at [place]. Patient had previous bilateral lower extremity angioplasty and had noticed
increasing pain and discoloration of her feet leading to bilateral lower extremity balloon angioplasty and then returning for an RLE SUPERVISOR DRYING [employer] SOFTENING and stent carried out over 2 procedures in September and October. Patient feels that in between the procedures she
started noticed increased LE edema along with increasing abdominal distention. Patient has a history of chronic HFpEF and was supposed to take Lasix 20 mg daily PRN, but for the most part avoided ever taking a dose so she was worried it would hurt
her renal function. Patient had progressive increase in LE edema and then symptoms of orthopnea and so she finally asked her daughter to bring her to the ER last night. proBNP greater than 27,000. She is also noted to have a drop in Hgb that was
her previous on 09/01/2024 and is now down to 8.9, but she denies any BRBPR or melena. Patient does have a history of GIB and is currently on a regimen of Eliquis and Plavix following PAD interventions as noted.
Progress Note - Psych Social Worker
Subjective
Date of Service: October 26, 2024
She feels better, says oxygen is because her room is so hot
Objective
Labs:
10/26/24 05:45
10/26/24 05:55
Labs
Hgb 8.8 g/dL (12.0-16.0) L 10/26/24 05:45
Hct 25.7 % (37.0-47.0) L 10/26/24 05:45
Plt Count 272 10^3/uL (130-400) 10/26/24 05:45
PT 27.7 Sec (11.4-14.6) H 10/24/24 15:54
INR 2.58 10/24/24 15:54
APTT 44.2 Sec (23.4-35.0) H 10/24/24 15:54
Sodium 141 mmol/L (135-145) 10/26/24 05:55
Potassium 3.0 mmol/L (3.5-5.1) L 10/26/24 05:55
BUN 21 mg/dl (7-17) H 10/26/24 05:55
Creatinine 1.4 mg/dL (0.6-1.0) H 10/26/24 05:55
Glucose 93 mg/dl (70-99) 10/26/24 05:55
Troponins
10/24/24 10/24/24
15:54 22:26
Troponin I 0.196 H* 0.182 H*
Vital Signs and I&O:
Vital Signs
Temp Pulse Resp BP Pulse Ox
98.4 F 71 20 120/50 96
10/26/24 08:00 10/26/24 08:00 10/26/24 08:00 10/26/24 08:00 10/26/24 08:00
Vital Signs
Temp Pulse Resp BP Pulse Ox
98.4 F 71 20 120/50 96
10/26/24 08:00 10/26/24 08:00 10/26/24 08:00 10/26/24 08:00 10/26/24 08:00
Intake & Output
10/24/24 10/25/24 10/26/24 10/27/24
06:59 06:59 06:59 06:59
Intake Total 960 / 960
Output Total 1275 / 1275 3100 / 3100
Balance -1275 / -1275 -2140 / -2140
Physical Exam
Physical Exam
GEN: NAD. AAOx3
LUNGS: 1 L NC
CV: SR on tele.
EXT: +1 B/L LE edema.
NEURO: Gross non-focal
SKIN: No rash
--- NOTE | 2024-10-26 10:58 | PN.CDI ---
Addendum entered and electronically signed by Jeyson Vinson MD 10/26/24 11:14:
Hydronephrosis is not a valid diagnosis for this patient
Original Note:
CDI
- -
CDI:
Physician Documentation Request
Admit Date: 10/24/24 20:00
Dear Doctor Karel,
Please review the following and provide your response in the progress notes.
Clinical Indicators:
The diagnosis of hydronephrosis was included in the signed 10/25 US Renal.
- 10/25 US Renal 'Mild left hydronephrosis. No urinary tract calculi appreciated.'
- 10/26 PN 'UTI'
- 'will give oral antibiotic'
Please indicate in your progress notes if you are in agreement that the above diagnosis is valid for this patient:
____ - Hydronephrosis is a valid diagnosis (Please include it in your progress notes)
____ - Hydronephrosis is not a valid diagnosis for this patient
____ - Hydronephrosis is not yet confirmed but remains a suspected condition
____ - Other
Use of terms such as suspected, likely, concern for, or probable are acceptable for a diagnosis that is being evaluated, monitored or treated as if it exists and can be coded in the inpatient setting, when documented at the time of discharge.
Thank you,
Po Fenton RN
CDI Specialist
Please use your independent medical judgment in providing your response.
--- NOTE | 2024-10-26 12:32 | W.PN.NEPH.PH ---
Today's Communication / Plan
-
IV diuretics
Assessment/Plan
-
84-year-old female with past medical history of congestive heart failure, preserved EF, moderate to severe aortic stenosis, mild to moderate mitral regurgitation, CAD, hypertension, atrial fibrillation on anticoagulation, PAD presenting to the
emergency department with worsening shortness of breath and weight gain over the last 1 week.
Patient has a history of PAD and underwent bilateral angioplasties and stenting of the femorals over the last 6 weeks. She had 1 in September and then another 2 weeks ago. Since then patient noticed that she has been having increasing lower extremity
edema. 1 week ago she started having dyspnea on exertion.
Impression.
Acute on chronic kidney disease stage IIIa baseline creatinine of 1.2/1.3
Admitting creatinine 1.7
CHF
Weight gain
Edema
Anemia
PAD status post contrast
Valvular disease
Plan.
Acuity multifactorial/cardiorenal/IV contrast.
Agree with IV diuretics
Daily weights
2 g sodium restriction
Discussed risk benefits of proceeding with another study requiring contrast.
AM labs
Discussed with family at bedside
Creatinine better near baseline
Echocardiogram noted awaiting cardiology plan
-
-
Date of Service: October 26, 2024
CC / HPI / ROS
-
Chief Complaint:
Leg swelling
History of Present Illness:
Patient with history of valvular disease peripheral artery disease presents with shortness of breath leg swelling acute on chronic kidney disease
Review of Systems:
No shortness of breath or chest pain
Improved edema
Labs
-
Labs:
WBC 12.0 10^3/uL (4.8-10.8) H 10/26/24 05:45
RBC 2.67 10^6/uL (4.20-5.40) L 10/26/24 05:45
Hgb 8.8 g/dL (12.0-16.0) L 10/26/24 05:45
Hct 25.7 % (37.0-47.0) L 10/26/24 05:45
Plt Count 272 10^3/uL (130-400) 10/26/24 05:45
Sodium 141 mmol/L (135-145) 10/26/24 05:55
Potassium 3.0 mmol/L (3.5-5.1) L 10/26/24 05:55
Chloride 102 mmol/L (98-107) 10/26/24 05:55
Carbon Dioxide 30 mmol/L (22-30) 10/26/24 05:55
BUN 21 mg/dl (7-17) H 10/26/24 05:55
Creatinine 1.4 mg/dL (0.6-1.0) H 10/26/24 05:55
eGFR 37.56 10/26/24 05:55
Glucose 93 mg/dl (70-99) 10/26/24 05:55
Calcium 8.2 mg/dl (8.4-10.2) L 10/26/24 05:55
Vdu-Y-Yojvfduclgn Pept > 01455 pg/ml 10/24/24 15:54
Albumin 3.9 g/dl (3.5-5.0) 10/24/24 15:54
Physical Exam
-
Vital Signs:
Vital Signs
Temp Pulse Resp BP Pulse Ox
98.7 F 78 18 115/70 94
10/26/24 12:12 10/26/24 12:12 10/26/24 12:12 10/26/24 12:12 10/26/24 12:12
Respiratory:: Bilateral: CTA
Lung Excursion:: Normal
Abdomen:: Soft
Bowel Sounds:: Normal
Extremity Edema:: +1: Bilateral:
Vasquez Catheter: No
[2024-10-26] MEDS: NEURONTIN 300 MG PO (13:11)
[2024-10-26] MEDS: TYLENOL 650 MG PO (15:27)
--- NOTE | 2024-10-26 16:44 | CM ---
Spoke with Rosaura from [facility] she said they can accept pt at [place].
Please call Rosaura at [phone] at [place].
PLAN Home with [facility] fax [phone]
[2024-10-26] MEDS: NON-FORMULARY ITEM 1 UNIT PO (16:58)
[2024-10-27] VITALS (7 sets, daily range): BP systolic 89–132; BP diastolic 48–67; BMI 32.6; BMI 32.5
[2024-10-27] MEDS: TOPROL XL PO (03:07)
[2024-10-27 08:17] LABS: Blood Urea Nitrogen 20 mg/dl (7-17); Calcium 8.5 mg/dl (8.4-10.2); Carbon Dioxide 34 mmol/L (22-30); Chloride 100 mmol/L (98-107); Estimated Creatinine Clearance 27 ml/min; Glucose 102 mg/dl (70-99); Sodium 140 mmol/L (135-145); eGFR 34.58
--- NOTE | 2024-10-27 09:30 | W.PN.HOSP.TC ---
Today's Communication/Plan
-
# Hypotension , likely medication induced
Stop hydralazine
Hold Lasix for now, hold BB
PRN IVF Bolus
Assessment / Plan
Assessment / Plan
Physical Exam
General: Well Developed, Well Nourished and Comfortable
HEENT: NormoCephalic, Anicteric, Moist mucous membranes, Atraumatic and PERRLA; No Oxygen
Respiratory: much less rales
Cardiac: S1/S2 and Regular Rhythm
Breast: Deferred by me
GI: Soft, Non Tender, Non Distended and Normal Bowel Sounds
Rectal: no bleeding
Genito-urinary: no hematuria
Musculoskeletal: No Clubbing, No Cyanosis, Edema, Left Lower Extremity (2+) and Edema, Right Lower Extremity (2+)
Skin: Warm
Neuro: AO x 3 and Nonfocal/grossly intact
Psych: Calm
# Hypotension , likely medication induced
Stop hydralazine
Hold Lasix for now, hold BB
Monitor bP
Acute on chronic HFpEF
CHF exacerbation -weight gain, pulmonary edema, elevated BNP, ERNESTO all consistent with CHF exacerbation, known history of CHF with preserved EF and aortic stenosis which may be slightly worsening. - nonischemic myocardial injury troponin elevation
She feels better, no chest pain
Lost weight
c/w Lasix, monitor renal function
Appreciate cardiology help
# UTI
will give oral antibiotic
# hypokalemia
Replace
ERNESTO -
Creatinine is improving
- nephrology consulted
- avoid nephrotoxins
Paroxysmal Atrial fibrillation - rate controlled
- continue metoprolol
- continue Eliquis, re-dose according to renal function
CML - stable
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
- continue Gleevec
normal iron
Primary oncology Dr Joyce
Will give blood if HGB less than 8
# non specific neuropathy
on gabapentin, I reduced the doses according to renal function
# Osteoporosis, no Fosamax while in hospital
DVT PPX - on apixaban
Code Status - Full Code
Total time spent to see the patient, examine the patient, review data and lab result, discuss treatment plan with patient, nursing staff around 55 minutes
Anticipated Discharge: Within 24 hours
Subjective/Interval History
-
Date of Service: October 27, 2024
She feels dizzy after morning pills
Objective Data
-
Labs:
Laboratory Results
10/27/24
06:08
Sodium 140
Potassium 4.0 D
Chloride 100
Carbon Dioxide 34 H
BUN 20 H
Creatinine 1.5 H
Glucose 102 H
Calcium 8.5
Vital Signs:
Vital Signs
Temp Pulse Resp BP Pulse Ox
98.4 F 84 18 105/53 98
10/27/24 07:00 10/27/24 07:00 10/27/24 07:00 10/27/24 07:00 10/27/24 07:00
I&O
10/26/24 10/27/24 10/28/24
06:59 06:59 06:59
Intake Total 960 / 960 480 / 480
Output Total 3100 / 3100 780 / 780
Balance -2140 / -2140 -300 / -300
[2024-10-27] MEDS: CEFTIN 250 MG PO ×2 (09:45→20:02)
[2024-10-27] MEDS: ELIQUIS 2.5 MG PO ×2 (09:45→20:02)
[2024-10-27] MEDS: PROTONIX 40 MG PO (09:45)
[2024-10-27] MEDS: PLAVIX 75 MG PO (09:45)
[2024-10-27] MEDS: KCL 40 MEQ PO (09:45)
[2024-10-27] MEDS: NEURONTIN 600 MG PO ×2 (09:45→20:02)
[2024-10-27] MEDS: LASIX 40 MG IV (09:46)
--- NOTE | 2024-10-27 12:29 | W.PN.NEPH.PH ---
Today's Communication / Plan
-
holding diuresis
labs in am
Assessment/Plan
-
84-year-old female with past medical history of congestive heart failure, preserved EF, moderate to severe aortic stenosis, mild to moderate mitral regurgitation, CAD, hypertension, atrial fibrillation on anticoagulation, PAD presenting to the
emergency department with worsening shortness of breath and weight gain over the last 1 week.
Patient has a history of PAD and underwent bilateral angioplasties and stenting of the femorals over the last 6 weeks. She had 1 in September and then another 2 weeks ago. Since then patient noticed that she has been having increasing lower extremity
edema. 1 week ago she started having dyspnea on exertion.
Impression.
Acute on chronic kidney disease stage IIIa baseline creatinine of 1.2/1.3
Admitting creatinine 1.7
CHF
Weight gain
Edema
Anemia
PAD status post contrast
Valvular disease
Plan.
ERNESTO-cr slightly up at 1.5-over alls table with diuresis
bland UA, US shows mild hydro on left and no stone-need out pt f/u imaging
etiology-multifactorial/cardiorenal/IV contrast.
BP low-holding IV diuretics and BB
labs in am
Daily weights
2 g sodium restriction
follow h/h , fe sat only 12%-IV fe course
-
-
Date of Service: October 27, 2024
CC / HPI / ROS
-
Chief Complaint:
Leg swelling
History of Present Illness:
Patient with history of valvular disease peripheral artery disease presents with shortness of breath leg swelling acute on chronic kidney disease
cr over all stable at 1.5
bp low this am
no fever, k normal
hb stable 8.8, fe sat 12%
Review of Systems:
No shortness of breath or chest pain
Improved edema
Labs
-
Labs:
WBC 12.0 10^3/uL (4.8-10.8) H 10/26/24 05:45
RBC 2.67 10^6/uL (4.20-5.40) L 10/26/24 05:45
Hgb 8.8 g/dL (12.0-16.0) L 10/26/24 05:45
Hct 25.7 % (37.0-47.0) L 10/26/24 05:45
Plt Count 272 10^3/uL (130-400) 10/26/24 05:45
Sodium 140 mmol/L (135-145) 10/27/24 06:08
Potassium 4.0 mmol/L (3.5-5.1) D 10/27/24 06:08
Chloride 100 mmol/L (98-107) 10/27/24 06:08
Carbon Dioxide 34 mmol/L (22-30) H 10/27/24 06:08
BUN 20 mg/dl (7-17) H 10/27/24 06:08
Creatinine 1.5 mg/dL (0.6-1.0) H 10/27/24 06:08
eGFR 34.58 10/27/24 06:08
Glucose 102 mg/dl (70-99) H 10/27/24 06:08
Calcium 8.5 mg/dl (8.4-10.2) 10/27/24 06:08
Zlx-V-Noijyrpxepr Pept > 38145 pg/ml 10/24/24 15:54
Albumin 3.9 g/dl (3.5-5.0) 10/24/24 15:54
Physical Exam
-
Vital Signs:
Vital Signs
Temp Pulse Resp BP Pulse Ox
98.2 F 88 18 89/48 100
10/27/24 11:51 10/27/24 11:51 10/27/24 11:51 10/27/24 11:51 10/27/24 11:51
Cardiovascular:: Regular rate and rhythm (murmur)
Respiratory:: Bilateral: CTA
Lung Excursion:: Normal
Abdomen:: Nontender and Soft
Extremity Edema:: +1: Bilateral: (trace)
Vasquez Catheter: No
[2024-10-27] MEDS: NEURONTIN 300 MG PO (13:26)
--- NOTE | 2024-10-27 14:40 | W.PN.CARDCBS ---
Addendum entered and electronically signed by Gualberto Oliveros MD 10/27/24 15:40:
I saw and examined the patient.
The Waste Specialist's note was reviewed and I agree with the note.
Comment:
GEN: No distress, awake, Ox3
HEENT: supple, anicteric, mmm
LUNGS: CTA, no wheezes/rales
CV: Reg, S1/S2, 2/6 syst LSB, no gallop
ABD: soft, BS+, NT/ND
EXT: No edema
NEURO: Gross non-focal
SKIN: No rash
Plan:
Clinically she has improved has diuresed well. She has acute heart failure with preserved ejection fraction and history of coronary artery disease. She also has a recent peripheral intervention done several weeks ago.
I reviewed her echo with her and her daughter. She has severe aortic stenosis with congestive heart failure and we should proceed with TAVR workup as outpatient.
Creatinine at 1.5. Nephrology holding diuresis. Will reassess kidney function in a.m. Will likely need some level of diuresis upon discharge.
We discussed plans for cardiac catheterization. We will see her as an outpatient and then proceed with cardiac cath and TAVR CT.
Continue Toprol, Imdur, hydralazine, and Farxiga.
Continue medical therapy for CAD/peripheral vascular disease with Eliquis, Plavix, Toprol. She has not tolerated statins in the past.
Original Note:
Today's Communication / Plan
-
Recheck BMP and CBC in a.m.
Lasix IV now on hold
Patient will follow-up with cardiology in the office and we can arrange for outpatient cardiac cath as her initial step in the TAVR workup.
Impression / Plan
-
PCP: Dr. Caballero
Cardiology: Dr. Salcedo
Heme/Onc: Dr. Joyce
Assessment:
Admitted with SOB and acute HF 10/24/24
Acute HFpEF
ERNESTO
Elevated Troponin
CAD with prior PCI of RCA in 2009
History of pericarditis/pericardial tamponade in 2018
PAD s/p peripheral angioplasty B/L LE and RLE SENIOR COST ACCOUNTANT and stent 09/2024 and 10/2024
Paroxysmal Afib
Chronic Eliquis OAC
Moderate mean gradient 39 mmHg by echo 04/2024
h/o DVT 2018
History of CML
Iron deficiency anemia
HLD
HTN
Catheterization in [place] December 2009: 85% stenosis with luminal irregularities remaining arteries, status post 3.5 mm Xience drug-eluting stent to mid RCA
Lexiscan sestamibi stress test June 2021: Predominantly fixed defect in basal inferior, mid inferior, apex, apical inferior segments, ejection fraction 43%
Echo 01/02/2023: Ejection fraction 54%, mild to moderate LVH, moderate aortic stenosis with mean gradient of 21 mmHg valve area 0.9 cm, mild MR
Echo 04/10/2023: EF 53%, stage II diastolic dysfunction, normal RV size and function, mild to moderate MR, moderate peak/mean 40/25 mmHg and PITO 1.5 cm sq
Echo 04/07/2024: EF 60 to 65%, mild to moderate MR, moderate to severe peak/mean 66/39 mmHg, mild to moderate MR
Echo 10/25/2024: EF 55%, mild concentric LVH, moderate MR, moderate to severe mean gradient 36 mmHg and PITO 1 cm sq, mild TR with PAP 45 to 50 mmHg
Plan:
-Weight is stable at 172 lbs on 10/27/24. Overall down 9 lbs total this admission with Lasix 40 mg IV BID diuresis.
-Labs reviewed by me and Cre up to 1.5 on 10/27/2024. Lasix 40 mg IV BID is now on hold. Recheck labs in a.m.
-Patient was taking Lasix 20 mg PO daily PRN prior to admission, but for the most part was virtually never taking any doses as she was worried about her renal function.
-Echo results reviewed by me and summarized above. Echo results also reviewed with the patient including stable moderate to severe . Will arrange for outpatient cardiology follow-up and we can arrange for cardiac catheterization thereafter as an
initial step in her TAVR workup
-Outpatient dose of Toprol XL 50 mg daily has been continued
-Outpatient dose of hydralazine 75 mg BID has been continued
-Outpatient dose of Imdur ER 30 mg daily has been continued
-Outpatient dose of Farxiga 10 mg daily was initially continued, but now UTI so Farxiga stopped on 10/26/2024
-Patient is not chronically on aldosterone antagonist. Potassium is 3.3 on admission. No indication the patient has previously been on aldosterone antagonist, will consider adding
-Patient with h/o CML and iron deficiency anemia. Hgb lower now that she is on Plavix and Eliquis after recent PAD interventions at [place]. Hgb was 8.8 on 10/26/2024, recheck CBC in a.m.
-Outpatient dose of Plavix 75 mg daily has been continued
-ECG abnormal with anterolateral T wave changes. Initial troponin elevated at 0.196 and trending down thereafter. No WMA on echo. Suspect this could be nonischemic myocardial injury troponin elevation.
HPI: Patient came to [facility] ER yesterday with increased SOB and orthopnea and was admitted with acute HF and cardiology has been consulted. Patient last saw Dr. Salcedo in the office on 08/04/2024 and at that time was feeling well, her history of AAS
was reviewed and the plan was for repeat echo in October. In the interim the patient continue to follow with her vascular surgery team that includes NORMA powers at [place]. Patient had previous bilateral lower extremity angioplasty and had noticed
increasing pain and discoloration of her feet leading to bilateral lower extremity balloon angioplasty and then returning for an RLE SENIOR COST ACCOUNTANT and stent carried out over 2 procedures in September and October. Patient feels that in between the procedures she
started noticed increased LE edema along with increasing abdominal distention. Patient has a history of chronic HFpEF and was supposed to take Lasix 20 mg daily PRN, but for the most part avoided ever taking a dose so she was worried it would hurt
her renal function. Patient had progressive increase in LE edema and then symptoms of orthopnea and so she finally asked her daughter to bring her to the ER last night. proBNP greater than 27,000. She is also noted to have a drop in Hgb that was
her previous on 09/01/2024 and is now down to 8.9, but she denies any BRBPR or melena. Patient does have a history of GIB and is currently on a regimen of Eliquis and Plavix following PAD interventions as noted.
Progress Note - Client Care Consultant
Subjective
Date of Service: October 27, 2024
No CP
Objective
Labs:
10/26/24 05:45
10/27/24 06:08
Labs
Hgb 8.8 g/dL (12.0-16.0) L 10/26/24 05:45
Hct 25.7 % (37.0-47.0) L 10/26/24 05:45
Plt Count 272 10^3/uL (130-400) 10/26/24 05:45
PT 27.7 Sec (11.4-14.6) H 10/24/24 15:54
INR 2.58 10/24/24 15:54
APTT 44.2 Sec (23.4-35.0) H 10/24/24 15:54
Sodium 140 mmol/L (135-145) 10/27/24 06:08
Potassium 4.0 mmol/L (3.5-5.1) D 10/27/24 06:08
BUN 20 mg/dl (7-17) H 10/27/24 06:08
Creatinine 1.5 mg/dL (0.6-1.0) H 10/27/24 06:08
Glucose 102 mg/dl (70-99) H 10/27/24 06:08
Troponins
10/24/24 10/24/24
15:54 22:26
Troponin I 0.196 H* 0.182 H*
Vital Signs and I&O:
Vital Signs
Temp Pulse Resp BP Pulse Ox
98.2 F 88 18 89/48 100
10/27/24 11:51 10/27/24 11:51 10/27/24 11:51 10/27/24 11:51 10/27/24 11:51
Vital Signs
Temp Pulse Resp BP Pulse Ox
98.2 F 88 18 89/48 100
10/27/24 11:51 10/27/24 11:51 10/27/24 11:51 10/27/24 11:51 10/27/24 11:51
Intake & Output
10/25/24 10/26/24 10/27/24 10/28/24
06:59 06:59 06:59 06:59
Intake Total 960 / 960 480 / 480
Output Total 1275 / 1275 3100 / 3100 780 / 780
Balance -1275 / -1275 -2140 / -2140 -300 / -300
Physical Exam
Physical Exam
GEN: NAD. AAOx3
LUNGS: 2 L NC
CV: SR on tele.
EXT: +1 B/L LE edema.
NEURO: Gross non-focal
SKIN: No rash
[2024-10-27] MEDS: FERRLECIT 110 MG IV (15:37)
--- NOTE | 2024-10-27 16:52 | CM ---
Spoke with patient she requested [facility] at home.
Referral [id number] for [facility] at home.
Sp[facility] with Rosaura from [facility] she said they can accept [facility] at [place].
Please call Rosaura at [phone] at [place].
Pt on oxygen . Will need home oxygen test if no weaned off by [place].
[facility] [phone]
[2024-10-27] MEDS: NON-FORMULARY ITEM 1 UNIT PO (17:33)
[2024-10-27] MEDS: KCL PO ×2 (20:02→21:34)
[2024-10-27] MEDS: ZOFRAN 4 MG IV (20:02)
[2024-10-27] MEDS: TYLENOL 650 MG PO (21:44)
[2024-10-27] MEDS: XANAX 0.25 MG PO (21:45)
[2024-10-28] VITALS (9 sets, daily range): BP systolic 105–135; BP diastolic 57–75; BMI 32.4
[2024-10-28] MEDS: TYLENOL 650 MG PO (03:52)
[2024-10-28 06:48] LABS: Hematocrit 26.3 % (37.0-47.0); Hemoglobin 8.8 g/dL (12.0-16.0); Mean Corp Hgb Conc. 33.5 g/dL (33.0-37.0); Mean Corpuscular Hgb 32.2 pg (27.0-31.0); Mean Corpuscular Volume 96.3 fL (81.0-99.0); Platelet Count 255 10^3/uL (130-400); Red Blood Cell Count 2.73 10^6/uL (4.20-5.40); Red Cell Dist. Width 15.4 % (11.5-14.5); White Blood Cell Count 14.9 10^3/uL (4.8-10.8)
[2024-10-28 07:14] LABS: Blood Urea Nitrogen 24 mg/dl (7-17); Calcium 8.7 mg/dl (8.4-10.2); Carbon Dioxide 32 mmol/L (22-30); Chloride 98 mmol/L (98-107); Estimated Creatinine Clearance 26 ml/min; Glucose 109 mg/dl (70-99); Potassium 4.2 mmol/L (3.5-5.1); Sodium 140 mmol/L (135-145)
[2024-10-28] MEDS: PROTONIX 40 MG PO (08:23)
[2024-10-28] MEDS: ELIQUIS 2.5 MG PO ×2 (08:23→19:57)
[2024-10-28] MEDS: CEFTIN 250 MG PO ×2 (08:25→19:57)
[2024-10-28] MEDS: NEURONTIN 600 MG PO ×2 (08:25→19:52)
[2024-10-28] MEDS: PLAVIX 75 MG PO (08:25)
[2024-10-28] MEDS: KCL PO ×4 (08:26→20:01)
--- NOTE | 2024-10-28 09:44 | CM ---
Pt weaned off oxygen .
Spoke with Rosaura from [facility] she said they can accept pt at [place].
Please call Rosaura at [phone] at [place].
Pt said she will arrange a ride home at [place].
PLAN Home with [facility] fax [phone]
--- NOTE | 2024-10-28 10:00 | W.PN.HOSP.TC ---
Today's Communication/Plan
-
Wrist x ray, might need steroid
One unit of blood
Resume Lasix
Assessment / Plan
Assessment / Plan
Physical Exam
General: Well Developed, Well Nourished and Comfortable
HEENT: NormoCephalic, Anicteric, Moist mucous membranes, Atraumatic and PERRLA; No Oxygen
Respiratory: much less rales
Cardiac: S1/S2 and Regular Rhythm
Breast: Deferred by me
GI: Soft, Non Tender, Non Distended and Normal Bowel Sounds
Rectal: no bleeding
Genito-urinary: no hematuria
Musculoskeletal: No Clubbing, No Cyanosis. Less edema in lower legs, right wrist tender and mild swelling, no erythema.
Skin: Warm
Neuro: AO x 3 and Nonfocal/grossly intact
Psych: Calm
# Acute right wrist tender and mild swelling, no erythema.
Could be Gout/ pseudogout precipitated by diuretic
Check x ray
Check uric acid level
Might need steroid
# Hypotension , likely medication induced
No better, resume medications slowly.
Would not use hydralazine
Monitor BP
Acute on chronic HFpEF
CHF exacerbation -weight gain, pulmonary edema, elevated BNP, ERNESTO all consistent with CHF exacerbation, known history of CHF with preserved EF and aortic stenosis which may be slightly worsening. - nonischemic myocardial injury troponin elevation
She feels better, no chest pain
Lost weight
c/w Lasix but lower the dose.
Monitor renal function
Appreciate cardiology help
# UTI
Not severe
No dysuria or fever
Give oral antibiotic
# hypokalemia
Replace
# Acute on chronic kidney disease stage IIIa baseline creatinine of 1.2/1.3
Creatinine is improving
- nephrology consulted
- avoid nephrotoxins
Paroxysmal Atrial fibrillation - rate controlled
- continue metoprolol
- continue Eliquis, re-dose according to renal function
CML - stable
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
- continue Gleevec
Consent for transfusion is signed, Ordered Type and screen
Primary oncology Dr Joyce, d/w Dr Joyce, ok to give blood one unit, normal iron level
Iron sat is 12%, given IV Iron
# non specific neuropathy
on gabapentin, I reduced the doses according to renal function
# Osteoporosis, no Fosamax while in hospital
DVT PPX - on apixaban
Code Status - Full Code
Total time spent to see the patient, examine the patient, review data and lab result, discuss treatment plan with patient, daughter, nursing staff around 55 minutes
Anticipated Discharge: Within 24 hours
Subjective/Interval History
-
Date of Service: October 28, 2024
Right wrist pain and swelling
No chest pain
Less sob
Objective Data
-
Labs:
Laboratory Results
10/28/24
06:00
WBC 14.9 H
Hgb 8.8 L
Hct 26.3 L
Plt Count 255
Sodium 140
Potassium 4.2
Chloride 98
Carbon Dioxide 32 H
BUN 24 H
Creatinine 1.6 H
Glucose 109 H
Calcium 8.7
Vital Signs:
Vital Signs
Temp Pulse Resp BP Pulse Ox
98.1 F 97 16 112/66 90
10/28/24 07:00 10/28/24 07:00 10/28/24 07:00 10/28/24 07:00 10/28/24 07:00
I&O
10/27/24 10/28/24 10/29/24
06:59 06:59 06:59
Intake Total 480 / 480 180 / 180
Output Total 780 / 780
Balance -300 / -300 180 / 180
[2024-10-28] MEDS: LASIX 40 MG PO (10:55)
[2024-10-28] MEDS: NEURONTIN 300 MG PO (12:52)
--- NOTE | 2024-10-28 12:56 | W.PN.CARDCBS ---
Addendum entered and electronically signed by Gualberto Oliveros MD 10/28/24 14:25:
I saw and examined the patient.
The Wash Box Operator's note was reviewed and I agree with the note.
Comment:
GEN: No distress, awake, Ox3
HEENT: supple, anicteric, mmm
LUNGS: CTA, no wheezes/rales
CV: Reg, S1/S2, 1/6 syst LSB, no murmur
ABD: soft, BS+, NT/ND
EXT: R wrist dec ROM, swelling
NEURO: Gross non-focal
SKIN: No rash
PLan:
Creatinine up to 1.6. Getting 1 unit of blood +40 mg of p.o. Lasix. Likely will need standing dose of Lasix upon discharge.
Repeat labs in AM.
Agree with x-ray for possible gout of right wrist.
Tentative plan will be for discharge, follow-up in office visit and then cardiac cath as outpatient to continue TAVR evaluation.
Weight overall stable
Original Note:
Today's Communication / Plan
-
1 unit PRBCs today
lasix 40 mg PO daily ordered by hospitalist attending. Patient likely needs a standing dose of Lasix upon d/c instead of the PRN dosing she was doing prior to admission
Impression / Plan
-
PCP: Dr. Caballero
Cardiology: Dr. Salcedo
Heme/Onc: Dr. Joyce
Assessment:
Admitted with SOB and acute HF 10/24/24
Acute HFpEF
ERNESTO
Elevated Troponin
CAD with prior PCI of RCA in 2009
History of pericarditis/pericardial tamponade in 2018
PAD s/p peripheral angioplasty B/L LE and RLE TRAILER DRIVER and stent 09/2024 and 10/2024
Paroxysmal Afib
Chronic Eliquis OAC
Moderate mean gradient 39 mmHg by echo 04/2024
h/o DVT 2018
History of CML
Iron deficiency anemia
HLD
HTN
Catheterization in [place] December 2009: 85% stenosis with luminal irregularities remaining arteries, status post 3.5 mm Xience drug-eluting stent to mid RCA
Lexiscan sestamibi stress test June 2021: Predominantly fixed defect in basal inferior, mid inferior, apex, apical inferior segments, ejection fraction 43%
Echo 01/02/2023: Ejection fraction 54%, mild to moderate LVH, moderate aortic stenosis with mean gradient of 21 mmHg valve area 0.9 cm, mild MR
Echo 04/10/2023: EF 53%, stage II diastolic dysfunction, normal RV size and function, mild to moderate MR, moderate peak/mean 40/25 mmHg and PITO 1.5 cm sq
Echo 04/07/2024: EF 60 to 65%, mild to moderate MR, moderate to severe peak/mean 66/39 mmHg, mild to moderate MR
Echo 10/25/2024: EF 55%, mild concentric LVH, moderate MR, moderate to severe mean gradient 36 mmHg and PITO 1 cm sq, mild TR with PAP 45 to 50 mmHg
Plan:
-Weight is stable at 171 lbs on 10/28/24. Overall down 9 lbs total this admission with Lasix 40 mg IV BID diuresis.
-Labs reviewed by me and Cre up to 1.7 on 10/28/2024 despite Lasix IV being placed on hold since 10/27/24AM.
-Lasix 40 mg PO daily ordered for 10/28/24.
-Patient was taking Lasix 20 mg PO daily PRN prior to admission, but for the most part was virtually never taking any doses as she was worried about her renal function.
-Echo this admission showed stable moderate to severe . Will arrange for outpatient cardiology follow-up and we can arrange for cardiac catheterization thereafter as an initial step in her TAVR workup, patient prefers outpatient cath due to
recent vascular procedures
-Outpatient dose of Toprol XL 50 mg daily has been continued
-Outpatient dose of hydralazine 75 mg BID has been continued
-Outpatient dose of Imdur ER 30 mg daily has been continued
-Outpatient dose of Farxiga 10 mg daily was initially continued, but now UTI so Farxiga stopped on 10/26/2024
-Patient is not chronically on aldosterone antagonist. Potassium is 3.3 on admission. No indication the patient has previously been on aldosterone antagonist, will consider adding
-Patient with h/o CML and iron deficiency anemia. Hgb 8.8 on labs reviewed by me 10/28/24. Hospitalist attending note reviewed by me, plan is for 1 unit PRBCs. Hgb lower now that she is on Plavix and Eliquis after recent PAD interventions at [place].
-Outpatient dose of Plavix 75 mg daily has been continued
-ECG abnormal with anterolateral T wave changes. Initial troponin elevated at 0.196 and trending down thereafter. No WMA on echo. Suspect this could be nonischemic myocardial injury troponin elevation.
HPI: Patient came to [facility] ER yesterday with increased SOB and orthopnea and was admitted with acute HF and cardiology has been consulted. Patient last saw Dr. Salcedo in the office on 08/04/2024 and at that time was feeling well, her history of AAS
was reviewed and the plan was for repeat echo in October. In the interim the patient continue to follow with her vascular surgery team that includes NORMA powers at [place]. Patient had previous bilateral lower extremity angioplasty and had noticed
increasing pain and discoloration of her feet leading to bilateral lower extremity balloon angioplasty and then returning for an RLE TRAILER DRIVER and stent carried out over 2 procedures in September and October. Patient feels that in between the procedures she
started noticed increased LE edema along with increasing abdominal distention. Patient has a history of chronic HFpEF and was supposed to take Lasix 20 mg daily PRN, but for the most part avoided ever taking a dose so she was worried it would hurt
her renal function. Patient had progressive increase in LE edema and then symptoms of orthopnea and so she finally asked her daughter to bring her to the ER last night. proBNP greater than 27,000. She is also noted to have a drop in Hgb that was
her previous -/ on 09/01/2024 and is now down to 8.9, but she denies any BRBPR or melena. Patient does have a history of GIB and is currently on a regimen of Eliquis and Plavix following PAD interventions as noted.
Progress Note - Rubber Covering Machine Operator
Subjective
Date of Service: October 28, 2024
She thinks she has gout
Objective
Labs:
10/28/24 06:00
10/28/24 06:00
Labs
Hgb 8.8 g/dL (12.0-16.0) L 10/28/24 06:00
Hct 26.3 % (37.0-47.0) L 10/28/24 06:00
Plt Count 255 10^3/uL (130-400) 10/28/24 06:00
PT 27.7 Sec (11.4-14.6) H 10/24/24 15:54
INR 2.58 10/24/24 15:54
APTT 44.2 Sec (23.4-35.0) H 10/24/24 15:54
Sodium 140 mmol/L (135-145) 10/28/24 06:00
Potassium 4.2 mmol/L (3.5-5.1) 10/28/24 06:00
BUN 24 mg/dl (7-17) H 10/28/24 06:00
Creatinine 1.6 mg/dL (0.6-1.0) H 10/28/24 06:00
Glucose 109 mg/dl (70-99) H 10/28/24 06:00
Vital Signs and I&O:
Vital Signs
Temp Pulse Resp BP Pulse Ox
98 F 95 16 114/75 99
10/28/24 12:41 10/28/24 12:41 10/28/24 12:10/28/24 12:41 10/28/24 12:29
Vital Signs
Temp Pulse Resp BP Pulse Ox
98 F 95 16 114/75 99
10/28/24 12:41 10/28/24 12:41 10/28/24 12:41 10/28/24 12:41 10/28/24 12:29
Intake & Output
10/26/24 10/27/24 10/28/24 10/29/24
06:59 06:59 06:59 06:59
Intake Total 960 / 960 480 / 480 180 / 180
Output Total 3100 / 3100 780 / 780
Balance -2140 / -2140 -300 / -300 180 / 180
Physical Exam
Physical Exam
GEN: NAD. AAOx3
LUNGS: 2 L NC
CV: SR on tele.
EXT: +1 B/L LE edema.
NEURO: Gross non-focal
SKIN: No rash
--- NOTE | 2024-10-28 14:50 | W.PN.NEPH.PH ---
Today's Communication / Plan
-
follow labs on diuresis
Assessment/Plan
-
84-year-old female with past medical history of congestive heart failure, preserved EF, moderate to severe aortic stenosis, mild to moderate mitral regurgitation, CAD, hypertension, atrial fibrillation on anticoagulation, PAD presenting to the
emergency department with worsening shortness of breath and weight gain over the last 1 week.
Patient has a history of PAD and underwent bilateral angioplasties and stenting of the femorals over the last 6 weeks. She had 1 in September and then another 2 weeks ago. Since then patient noticed that she has been having increasing lower extremity
edema. 1 week ago she started having dyspnea on exertion.
Impression.
Acute on chronic kidney disease stage IIIa baseline creatinine of 1.2/1.3
Admitting creatinine 1.7
CHF
Weight gain
Edema
Anemia
PAD status post contrast
Valvular disease
Plan.
ERNESTO-cr slightly up at 1.6-over alls table with diuresis
bland UA, US shows mild hydro on left and no stone-need out pt f/u imaging
etiology-multifactorial/cardiorenal/IV contrast.
BP better today, remains on bb
receiving 1 unit pRBC today
suspecting gout of right wrist
cotn lasix with transfusion m also on IV fe course
labs in am
Daily weights
2 g sodium restriction
out pt TAVR eval
-
-
Date of Service: October 28, 2024
CC / HPI / ROS
-
Chief Complaint:
Leg swelling
History of Present Illness:
Patient with history of valvular disease peripheral artery disease presents with shortness of breath leg swelling acute on chronic kidney disease
cr slightly up at 1.6
bp stable
no fever, k normal
hb stable 8.8, fe sat 12%, for 1 unit PRBC
Review of Systems:
No shortness of breath or chest pain
still with edema
Labs
-
Labs:
WBC 14.9 10^3/uL (4.8-10.8) H 10/28/24 06:00
RBC 2.73 10^6/uL (4.20-5.40) L 10/28/24 06:00
Hgb 8.8 g/dL (12.0-16.0) L 10/28/24 06:00
Hct 26.3 % (37.0-47.0) L 10/28/24 06:00
Plt Count 255 10^3/uL (130-400) 10/28/24 06:00
Sodium 140 mmol/L (135-145) 10/28/24 06:00
Potassium 4.2 mmol/L (3.5-5.1) 10/28/24 06:00
Chloride 98 mmol/L (98-107) 10/28/24 06:00
Carbon Dioxide 32 mmol/L (22-30) H 10/28/24 06:00
BUN 24 mg/dl (7-17) H 10/28/24 06:00
Creatinine 1.6 mg/dL (0.6-1.0) H 10/28/24 06:00
eGFR 32.00 10/28/24 06:00
Glucose 109 mg/dl (70-99) H 10/28/24 06:00
Calcium 8.7 mg/dl (8.4-10.2) 10/28/24 06:00
Vnn-Z-Vraymokushn Pept > 77766 pg/ml 10/24/24 15:54
Albumin 3.9 g/dl (3.5-5.0) 10/24/24 15:54
Physical Exam
-
Vital Signs:
Vital Signs
Temp Pulse Resp BP Pulse Ox
98.0 F 93 18 116/67 99
10/28/24 13:02 10/28/24 13:02 10/28/24 13:02 10/28/24 13:02 10/28/24 12:29
Cardiovascular:: Regular rate and rhythm (murmur)
Respiratory:: Bilateral: CTA
Lung Excursion:: Normal
Abdomen:: Nontender and Soft
Extremity Edema:: +1: Bilateral:
Vasquez Catheter: No
[2024-10-28] MEDS: FERRLECIT 110 MG IV (15:03)
[2024-10-28] MEDS: NON-FORMULARY ITEM 1 UNIT PO (21:16)
[2024-10-28] MEDS: TOPROL XL 50 MG PO (21:17)
[2024-10-28] MEDS: TYLENOL 1000 MG PO (21:22)
[2024-10-29] VITALS (8 sets, daily range): BP systolic 89–124; BP diastolic 55–73; O2SAT 93; BMI 32.6
[2024-10-29 07:53] LABS: Hematocrit 27.9 % (37.0-47.0); Hemoglobin 9.5 g/dL (12.0-16.0); Mean Corp Hgb Conc. 34.1 g/dL (33.0-37.0); Mean Corpuscular Hgb 32.8 pg (27.0-31.0); Mean Corpuscular Volume 96.2 fL (81.0-99.0); Mean Platelet Volume 9.8 fL (7.4-10.4); Platelet Count 225 10^3/uL (130-400); Red Cell Dist. Width 15.7 % (11.5-14.5); White Blood Cell Count 9.9 10^3/uL (4.8-10.8)
[2024-10-29 08:26] LABS: Blood Urea Nitrogen 31 mg/dl (7-17); Calcium 8.8 mg/dl (8.4-10.2); Carbon Dioxide 33 mmol/L (22-30); Chloride 99 mmol/L (98-107); Estimated Creatinine Clearance 27 ml/min; Glucose 104 mg/dl (70-99); Potassium 4.1 mmol/L (3.5-5.1); Sodium 140 mmol/L (135-145); eGFR 34.58
[2024-10-29] MEDS: PLAVIX 75 MG PO (08:38)
[2024-10-29] MEDS: CEFTIN 250 MG PO ×2 (08:38→21:54)
[2024-10-29] MEDS: LASIX 40 MG PO (08:38)
[2024-10-29] MEDS: ELIQUIS 2.5 MG PO ×2 (08:38→21:54)
[2024-10-29] MEDS: NEURONTIN 600 MG PO ×2 (08:39→21:53)
[2024-10-29] MEDS: PROTONIX 40 MG PO (08:39)
--- NOTE | 2024-10-29 09:18 | W.PN.HOSP.TC ---
Today's Communication/Plan
-
likely dc in am pending medical status, might need SNF with her current right wrist issue.
Assessment / Plan
Assessment / Plan
Physical Exam
General: Well Developed, Well Nourished and Comfortable
HEENT: NormoCephalic, Anicteric, Moist mucous membranes, Atraumatic and PERRLA; No Oxygen
Respiratory: much less rales
Cardiac: S1/S2 and Regular Rhythm
Breast: Deferred by me
GI: Soft, Non Tender, Non Distended and Normal Bowel Sounds
Rectal: no bleeding
Genito-urinary: no hematuria
Musculoskeletal: No Clubbing, No Cyanosis. Less edema in lower legs, right wrist tender and mild swelling, no erythema.
Skin: Warm
Neuro: AO x 3 and Nonfocal/grossly intact
Psych: Calm
# Acute right wrist tender and mild swelling, no erythema. c/w OA
I reviewed result with ortho salon customer experience specialist, likely arthritis, trial of brace, if no helpful, try local steroid shot.
# Hypotension , likely medication induced
No better, resumed medications slowly.
Would not use hydralazine
Monitor BP
Acute on chronic HFpEF
CHF exacerbation -weight gain, pulmonary edema, elevated BNP, ERNESTO all consistent with CHF exacerbation, known history of CHF with preserved EF and aortic stenosis which may be slightly worsening. - nonischemic myocardial injury troponin elevation
She feels better, no chest pain
Lost weight
c/w Lasix but lower the dose.
Monitor renal function
Appreciate cardiology help
# UTI
Not severe
No dysuria or fever
Given oral antibiotic
# hypokalemia
Replace
# Acute on chronic kidney disease stage IIIa baseline creatinine of 1.2/1.3
Creatinine is improving
- nephrology consulted
- avoid nephrotoxins
Paroxysmal Atrial fibrillation - rate controlled
- continue metoprolol
- continue Eliquis, re-dose according to renal function
CML - stable
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
- continue Gleevec
Consent for transfusion is signed, Ordered Type and screen
Primary oncology Dr Joyce, d/w Dr Joyce, ok to give blood one unit, normal iron level
Iron sat is 12%, given IV Iron
# non specific neuropathy
on gabapentin, I reduced the doses according to renal function
# Osteoporosis, no Fosamax while in hospital
DVT PPX - on apixaban
Code Status - Full Code
Total time spent to see the patient, examine the patient, review data and lab result, discuss treatment plan with patient, daughter, nursing staff around 55 minutes
Anticipated Discharge: Within 24 hours
Subjective/Interval History
-
Date of Service: October 29, 2024
She feels better
No chest pain
No sob
Right wrist pain
Objective Data
-
Labs:
Laboratory Results
10/29/24
07:39
WBC 9.9
Hgb 9.5 L
Hct 27.9 L
Plt Count 225
Sodium 140
Potassium 4.1
Chloride 99
Carbon Dioxide 33 H
BUN 31 H
Creatinine 1.5 H
Glucose 104 H
Calcium 8.8
Vital Signs:
Vital Signs
Temp Pulse Resp BP Pulse Ox
97.5 F 70 18 118/68 96
10/29/24 08:17 10/29/24 08:38 10/29/24 08:17 10/29/24 08:38 10/29/24 08:17
I&O
10/28/24 10/29/24 10/30/24
06:59 06:59 06:59
Intake Total 610 / 610
Output Total 250 / 250
Balance 360 / 360
--- NOTE | 2024-10-29 09:57 | W.PN.CARDCBS ---
Addendum entered and electronically signed by Emigdio Fletcher MD 10/29/24 15:16:
I saw and examined the patient.
The Dispersion Mixer's note was reviewed and I agree with the note.
Comment: Briefly, 84-year-old woman past medical history of severe aortic stenosis presenting in acute decompensated heart failure
Appears euvolemic today on exam
Diuretics were held for acute kidney injury and suspected overdiuresis
Would resume p.o. Lasix 40 mg daily and continue on discharge
Check BMP in 1 week
Will arrange outpatient follow-up and subsequent TAVR workup
We will sign off, please recall as needed
Original Note:
Today's Communication / Plan
-
Continue PO lasix 40mg daily
Creat improving, recheck BMP in 1 week
Hgb improved following unit of PRBCs 10/28.
Will arrange TAVR workup as OP
Follow up being arranged.
Impression / Plan
-
PCP: Dr. Caballero
Cardiology: Dr. Salcedo
Heme/Onc: Dr. Joyce
Assessment:
Admitted with SOB 10/24/24
Acute HFpEF
ERNESTO
Elevated Troponin
CAD with prior PCI of RCA in 2009
History of pericarditis/pericardial tamponade in 2018
PAD s/p peripheral angioplasty B/L LE and RLE SPIRAL RUNNER and stent 09/2024 and 10/2024
Paroxysmal Afib
Chronic Eliquis OAC
Moderate to severe by echo 10/2024
h/o DVT 2018
History of CML
Iron deficiency anemia
HLD
HTN
Catheterization in [place] December 2009: 85% stenosis with luminal irregularities remaining arteries, status post 3.5 mm Xience drug-eluting stent to mid RCA
Lexiscan sestamibi stress test June 2021: Predominantly fixed defect in basal inferior, mid inferior, apex, apical inferior segments, ejection fraction 43%
Echo 01/02/2023: Ejection fraction 54%, mild to moderate LVH, moderate aortic stenosis with mean gradient of 21 mmHg valve area 0.9 cm, mild MR
Echo 04/10/2023: EF 53%, stage II diastolic dysfunction, normal RV size and function, mild to moderate MR, moderate peak/mean 40/25 mmHg and PITO 1.5 cm sq
Echo 04/07/2024: EF 60 to 65%, mild to moderate MR, moderate to severe peak/mean 66/39 mmHg, mild to moderate MR
Echo 10/25/2024: EF 55%, mild concentric LVH, moderate MR, moderate to severe mean gradient 36 mmHg and PITO 1 cm sq, mild TR with PAP 45 to 50 mmHg
Plan:
-Presented with increased SOB. Admitted with acute heart failure with proBNP >27,000.
-Diuresed with IV lasix, but developed ERNESTO and lasix held 10/27, restarted on PO lasix in AM 10/28.
-Weight down 8lbs this admission to 172 lbs on 10/29.
-Creat improving, down to 1.5 10/29. Will discharge on lasix 40mg daily. Was not taking lasix regularly prior to admission.
-Recheck BMP in 1 week as OP.
-Echo this admission showed moderate to severe . Will start TAVR workup (cath/CT) as OP at follow up visit.
-Continue Toprol 50mg daily. OP hydralazine and imdur stopped due to hypotension.
-Farxiga stopped due to UTI.
-h/o CML and iron deficiency anemia. Hgb 8.8 on 10/28. s/p 1 unit PRBCs and hgb improved to 9.5 in AM 10/29. Feeling better following transfusion.
-Continue Eliquis and plavix following recent vascular procedure.
-Elevated troponin noted this admission, peaking at 0.196 and trending down thereafter. Suspect nonischemic myocardial injury in the setting of acute heart failure exacerbation.
-Will arrange cardiology follow up visit.
HPI: Patient came to [facility] ER yesterday with increased SOB and orthopnea and was admitted with acute HF and cardiology has been consulted. Patient last saw Dr. Salcedo in the office on 08/04/2024 and at that time was feeling well, her history of AAS
was reviewed and the plan was for repeat echo in October. In the interim the patient continue to follow with her vascular surgery team that includes NORMA powers at [place]. Patient had previous bilateral lower extremity angioplasty and had noticed
increasing pain and discoloration of her feet leading to bilateral lower extremity balloon angioplasty and then returning for an RLE SPIRAL RUNNER and stent carried out over 2 procedures in September and October. Patient feels that in between the procedures she
started noticed increased LE edema along with increasing abdominal distention. Patient has a history of chronic HFpEF and was supposed to take Lasix 20 mg daily PRN, but for the most part avoided ever taking a dose so she was worried it would hurt
her renal function. Patient had progressive increase in LE edema and then symptoms of orthopnea and so she finally asked her daughter to bring her to the ER last night. proBNP greater than 27,000. She is also noted to have a drop in Hgb that was
her previous on 09/01/2024 and is now down to 8.9, but she denies any BRBPR or melena. Patient does have a history of GIB and is currently on a regimen of Eliquis and Plavix following PAD interventions as noted.
Progress Note - Community Theater Actor
Subjective
Date of Service: October 29, 2024
Breathing and energy feel improved following transfusion yesterday.
Objective
Labs:
10/29/24 07:39
10/29/24 07:39
Labs
Hgb 9.5 g/dL (12.0-16.0) L 10/29/24 07:39
Hct 27.9 % (37.0-47.0) L 10/29/24 07:39
Plt Count 225 10^3/uL (130-400) 10/29/24 07:39
PT 27.7 Sec (11.4-14.6) H 10/24/24 15:54
INR 2.58 10/24/24 15:54
APTT 44.2 Sec (23.4-35.0) H 10/24/24 15:54
Sodium 140 mmol/L (135-145) 10/29/24 07:39
Potassium 4.1 mmol/L (3.5-5.1) 10/29/24 07:39
BUN 31 mg/dl (7-17) H 10/29/24 07:39
Creatinine 1.5 mg/dL (0.6-1.0) H 10/29/24 07:39
Glucose 104 mg/dl (70-99) H 10/29/24 07:39
Vital Signs and I&O:
Vital Signs
Temp Pulse Resp BP Pulse Ox
97.5 F 70 18 118/68 96
10/29/24 08:17 10/29/24 08:38 10/29/24 08:17 10/29/24 08:38 10/29/24 08:17
Vital Signs
Temp Pulse Resp BP Pulse Ox
97.5 F 70 18 118/68 96
10/29/24 08:17 10/29/24 08:38 10/29/24 08:17 10/29/24 08:38 10/29/24 08:17
Intake & Output
10/27/24 10/28/24 10/29/24 10/30/24
06:59 06:59 06:59 06:59
Intake Total 480 / 480 610 / 610
Output Total 780 / 780 250 / 250
Balance -300 / -300 360 / 360
Physical Exam
Physical Exam
GEN: No distress, awake, alert, oriented x3
HEENT: supple, anicteric, mmm
LUNGS: CTA b/l, no wheezes/rales
CV: Reg, S1/S2, 3/6 syst murmur
EXT: No clubbing or cyanosis, trace edema b/l LE
NEURO: Gross non-focal
SKIN: Warm, dry, no rash
--- NOTE | 2024-10-29 12:19 | W.PN.NEPH.PH ---
Today's Communication / Plan
-
Diuretics
Okay for discharge from a renal standpoint
Assessment/Plan
-
84-year-old female with past medical history of congestive heart failure, preserved EF, moderate to severe aortic stenosis, mild to moderate mitral regurgitation, CAD, hypertension, atrial fibrillation on anticoagulation, PAD presenting to the
emergency department with worsening shortness of breath and weight gain over the last 1 week.
Patient has a history of PAD and underwent bilateral angioplasties and stenting of the femorals over the last 6 weeks. She had 1 in September and then another 2 weeks ago. Since then patient noticed that she has been having increasing lower extremity
edema. 1 week ago she started having dyspnea on exertion.
Impression.
Acute on chronic kidney disease stage IIIa baseline creatinine of 1.2/1.3
Admitting creatinine 1.7
CHF
Weight gain
Edema
Anemia
PAD status post contrast
Valvular disease
Plan.
bland UA, US shows mild hydro on left and no stone-need out pt f/u imaging
etiology-multifactorial/cardiorenal/IV contrast.
BP better today, remains on bb
labs in am
Daily weights
2 g sodium restriction
out pt TAVR eval
Creatinine 1.5 stable
Would be okay for discharge from renal standpoint with follow-up in our office in a couple weeks
-
-
Date of Service: October 29, 2024
CC / HPI / ROS
-
Chief Complaint:
Leg swelling
History of Present Illness:
Patient with history of valvular disease peripheral artery disease presents with shortness of breath leg swelling acute on chronic kidney disease
cr slightly up at 1.6
bp stable
no fever, k normal
hb stable 8.8, fe sat 12%, for 1 unit PRBC
Review of Systems:
No shortness of breath or chest pain
still with edema
Labs
-
Labs:
WBC 9.9 10^3/uL (4.8-10.8) 10/29/24 07:39
RBC 2.90 10^6/uL (4.20-5.40) L 10/29/24 07:39
Hgb 9.5 g/dL (12.0-16.0) L 10/29/24 07:39
Hct 27.9 % (37.0-47.0) L 10/29/24 07:39
Plt Count 225 10^3/uL (130-400) 10/29/24 07:39
Sodium 140 mmol/L (135-145) 10/29/24 07:39
Potassium 4.1 mmol/L (3.5-5.1) 10/29/24 07:39
Chloride 99 mmol/L (98-107) 10/29/24 07:39
Carbon Dioxide 33 mmol/L (22-30) H 10/29/24 07:39
BUN 31 mg/dl (7-17) H 10/29/24 07:39
Creatinine 1.5 mg/dL (0.6-1.0) H 10/29/24 07:39
eGFR 34.58 10/29/24 07:39
Glucose 104 mg/dl (70-99) H 10/29/24 07:39
Calcium 8.8 mg/dl (8.4-10.2) 10/29/24 07:39
Qnp-S-Dnvfsjsknlr Pept > 10261 pg/ml 10/24/24 15:54
Albumin 3.9 g/dl (3.5-5.0) 10/24/24 15:54
Physical Exam
-
Vital Signs:
Vital Signs
Temp Pulse Resp BP Pulse Ox
98.4 F 72 18 110/57 98
10/29/24 11:45 10/29/24 11:45 10/29/24 11:45 10/29/24 11:45 10/29/24 11:45
Cardiovascular:: Regular rate and rhythm (murmur)
Respiratory:: Bilateral: CTA
Lung Excursion:: Normal
Abdomen:: Nontender and Soft
Extremity Edema:: +1: Bilateral:
Vasquez Catheter: No
[2024-10-29] MEDS: FERRLECIT 110 MG IV (13:08)
[2024-10-29] MEDS: TYLENOL 1000 MG PO (13:09)
[2024-10-29] MEDS: NEURONTIN 300 MG PO (13:09)
--- NOTE | 2024-10-29 15:38 | CM ---
Pt weaned off oxygen .
Spoke with dgt and pt in room . Reviewed PT OT eval which recommended SNF.
Family discussed and decided [facility].
Referral placed for [facility].
[phone] and that [facility] was added for SN.
Pt said she will arrange a ride home at dc.
IMM reviewed and signed on chart
PLAN Home with [facility] [phone]
[2024-10-29] MEDS: TOPROL XL 50 MG PO (21:54)
[2024-10-29] MEDS: NON-FORMULARY ITEM 1 UNIT PO (21:54)
[2024-10-30 05:08] VITALS: BMI 33.1
[2024-10-30 07:20] VITALS: BP 118/71
[2024-10-30] MEDS: PROTONIX 40 MG PO (08:07)
[2024-10-30] MEDS: NEURONTIN 600 MG PO (08:07)
[2024-10-30] MEDS: CEFTIN 250 MG PO (08:07)
[2024-10-30] MEDS: LASIX 40 MG PO (08:07)
[2024-10-30] MEDS: ELIQUIS 2.5 MG PO (08:07)
[2024-10-30] MEDS: PLAVIX 75 MG PO (08:07)
[2024-10-30 09:13] LABS: Hematocrit 30.6 % (37.0-47.0); Hemoglobin 10.3 g/dL (12.0-16.0); Mean Corp Hgb Conc. 33.7 g/dL (33.0-37.0); Mean Corpuscular Hgb 32.2 pg (27.0-31.0); Mean Corpuscular Volume 95.6 fL (81.0-99.0); Mean Platelet Volume 9.9 fL (7.4-10.4); Platelet Count 281 10^3/uL (130-400); Red Cell Dist. Width 15.3 % (11.5-14.5); White Blood Cell Count 9.6 10^3/uL (4.8-10.8)
--- NOTE | 2024-10-30 09:42 | W.PN.HOSP.TC ---
Today's Communication/Plan
-
dc
Assessment / Plan
Assessment / Plan
Physical Exam
General: Well Developed, Well Nourished and Comfortable
HEENT: NormoCephalic, Anicteric, Moist mucous membranes, Atraumatic and PERRLA; No Oxygen
Respiratory: much less rales
Cardiac: S1/S2 and Regular Rhythm
Breast: Deferred by me
GI: Soft, Non Tender, Non Distended and Normal Bowel Sounds
Rectal: no bleeding
Genito-urinary: no hematuria
Musculoskeletal: No Clubbing, No Cyanosis. Less edema in lower legs, right wrist tender and mild swelling, no erythema.
Skin: Warm
Neuro: AO x 3 and Nonfocal/grossly intact
Psych: Calm
# Acute right wrist tender and mild swelling, no erythema. c/w OA
I reviewed result with ortho diamond broker, likely arthritis, trial of brace, if no helpful, try local steroid shot, d/w pt, she wants to f/w Dr Matos.
# Hypotension , likely medication induced
Much better, resumed medications slowly. No Imdur & hydralazine.
Acute on chronic HFpEF
CHF exacerbation -weight gain, pulmonary edema, elevated BNP, ERNESTO all consistent with CHF exacerbation, known history of CHF with preserved EF and aortic stenosis which may be slightly worsening. - nonischemic myocardial injury troponin elevation
She feels better, no chest pain
Lost weight
c/w Lasix but lower the dose to 40 mg.
Monitored renal function
Appreciate cardiology help
# UTI
Not severe
No dysuria or fever
Given oral antibiotic
# hypokalemia
Replace
# Acute on chronic kidney disease stage IIIa baseline creatinine of 1.2/1.3
Creatinine is improving
- nephrology consulted
- avoid nephrotoxins
Paroxysmal Atrial fibrillation - rate controlled
- continue metoprolol
- continue Eliquis, re-dose according to renal function
CML - stable
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
- continue Gleevec
Consent for transfusion is signed, Ordered Type and screen
Primary oncology Dr Joyce, d/w Dr Joyce, ok to give blood one unit, normal iron level
Iron sat is 12%, given IV Iron, 4 doses
# non specific neuropathy
on gabapentin, I reduced the doses according to renal function
# Osteoporosis, no Fosamax while in hospital
DVT PPX - on apixaban
Code Status - Full Code
Total discharge time spent to see the patient, examine the patient, review data and lab result, discuss discharge plan with patient, daughter, nursing staff around 67 minutes
Anticipated Discharge: Today
Subjective/Interval History
-
Date of Service: October 30, 2024
She feels better, prefers to go home since daughter will stay with her
Objective Data
-
Labs:
Laboratory Results
10/30/24
09:03
WBC 9.6
Hgb 10.3 L
Hct 30.6 L
Plt Count 281 D
Sodium Pending
Potassium Pending
Chloride Pending
Carbon Dioxide Pending
BUN Pending
Creatinine Pending
Glucose Pending
Calcium Pending
Vital Signs:
Vital Signs
Temp Pulse Resp BP Pulse Ox
97.7 F 75 18 118/71 92
10/30/24 07:20 10/30/24 07:20 10/30/24 07:20 10/30/24 07:20 10/30/24 07:20
I&O
10/29/24 10/30/24 10/31/24
06:59 06:59 06:59
Intake Total 610 / 610 480 / 480
Output Total 250 / 250 1050 / 1050
Balance 360 / 360 -570 / -570
[2024-10-30 09:46] LABS: Blood Urea Nitrogen 33 mg/dl (7-17); Calcium 9.4 mg/dl (8.4-10.2); Carbon Dioxide 31 mmol/L (22-30); Chloride 100 mmol/L (98-107); Estimated Creatinine Clearance 28 ml/min; Glucose 115 mg/dl (70-99); Potassium 4.3 mmol/L (3.5-5.1); Sodium 140 mmol/L (135-145); eGFR 34.58
[2024-10-30] MEDS: FERRLECIT 110 MG IV (11:45)
[2024-10-30] MEDS: NEURONTIN 300 MG PO (12:16)
[2024-10-30 12:45] VITALS: BP 124/60
--- NOTE | 2024-10-30 12:53 | W.PN.NEPH.PH ---
Today's Communication / Plan
-
Follow-up in 2 weeks with renal
Assessment/Plan
-
84-year-old female with past medical history of congestive heart failure, preserved EF, moderate to severe aortic stenosis, mild to moderate mitral regurgitation, CAD, hypertension, atrial fibrillation on anticoagulation, PAD presenting to the
emergency department with worsening shortness of breath and weight gain over the last 1 week.
Patient has a history of PAD and underwent bilateral angioplasties and stenting of the femorals over the last 6 weeks. She had 1 in September and then another 2 weeks ago. Since then patient noticed that she has been having increasing lower extremity
edema. 1 week ago she started having dyspnea on exertion.
Impression.
Acute on chronic kidney disease stage IIIa baseline creatinine of 1.2/1.3
Admitting creatinine 1.7
CHF
Weight gain
Edema
Anemia
PAD status post contrast
Valvular disease
Plan.
bland UA, US shows mild hydro on left and no stone-need out pt f/u imaging
etiology-multifactorial/cardiorenal/IV contrast.
BP better today, remains on bb
labs in am
Daily weights
2 g sodium restriction
out pt TAVR eval
Creatinine 1.5 stable
Would be okay for discharge from renal standpoint with follow-up in our office in a couple weeks
-
-
Date of Service: October 30, 2024
CC / HPI / ROS
-
Chief Complaint:
Leg swelling
History of Present Illness:
Patient with history of valvular disease peripheral artery disease presents with shortness of breath leg swelling acute on chronic kidney disease
cr slightly up at 1.6
bp stable
no fever, k normal
hb stable 8.8, fe sat 12%, for 1 unit PRBC
Review of Systems:
No shortness of breath or chest pain
still with edema
Labs
-
Labs:
WBC 9.6 10^3/uL (4.8-10.8) 10/30/24 09:03
RBC 3.20 10^6/uL (4.20-5.40) L 10/30/24 09:03
Hgb 10.3 g/dL (12.0-16.0) L 10/30/24 09:03
Hct 30.6 % (37.0-47.0) L 10/30/24 09:03
Plt Count 281 10^3/uL (130-400) D 10/30/24 09:03
Sodium 140 mmol/L (135-145) 10/30/24 09:03
Potassium 4.3 mmol/L (3.5-5.1) 10/30/24 09:03
Chloride 100 mmol/L (98-107) 10/30/24 09:03
Carbon Dioxide 31 mmol/L (22-30) H 10/30/24 09:03
BUN 33 mg/dl (7-17) H 10/30/24 09:03
Creatinine 1.5 mg/dL (0.6-1.0) H 10/30/24 09:03
eGFR 34.58 10/30/24 09:03
Glucose 115 mg/dl (70-99) H 10/30/24 09:03
Calcium 9.4 mg/dl (8.4-10.2) 10/30/24 09:03
Zwt-M-Doeynvmkpdy Pept > 77495 pg/ml 10/24/24 15:54
Albumin 3.9 g/dl (3.5-5.0) 10/24/24 15:54
Physical Exam
-
Vital Signs:
Vital Signs
Temp Pulse Resp BP Pulse Ox
98.2 F 71 16 124/60 97
10/30/24 12:45 10/30/24 12:45 10/30/24 12:45 10/30/24 12:45 10/30/24 12:45
Cardiovascular:: Regular rate and rhythm (murmur)
Respiratory:: Bilateral: CTA
Lung Excursion:: Normal
Abdomen:: Nontender and Soft
Extremity Edema:: +1: Bilateral:
Vasquez Catheter: No
--- NOTE | 2024-10-31 06:59 | W.DCSUMMARY ---
Discharge Summary
Discharge Data
Date of Admission: 10/24/24
Date of Discharge: 10/30/24
-
Pending Results: No
Hospital Course
84 years old female presented to the hospital with shortness of breath, increasing weight and edema. Patient was diagnosed with acute heart failure with a preserved ejection fraction. She was evaluated by utility service worker. Patient received
intravenous diuretic therapy. There was limitation to continue with goal directed medical therapy for heart failure because of hypotension and dizziness. Patient was evaluated and followed by compliance technician. She had acute on chronic kidney disease
stage IIIa. Creatinine was 1.5 at time of discharge. 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 She was given 1 unit of blood transfusion and received 4 intravenous iron infusion therapy. Hemoglobin was 10.3, Creatinine 1 at
time of discharge. Patient experienced right wrist pain and swelling.1.5 x-ray did not show fracture but showed widened scapholunate space compatible with scapholunate ligament disruption. Findings were discussed with orthopedic doctor recommended
wrist support, local steroid injection if no improvement. Patient was advised to follow-up with orthopedic in outpatient setting. Patient reported fever, urine test showed infection and she received antibiotic therapy with good improvement.
Patient was evaluated by physical therapy recommended home home health therapy. Patient expressed her wishes to go home with home health services and reported good family support. Patient remained hemodynamically stable was discharged home in
stable condition.
Discharge Plan
-
Patient Disposition: Home with Home Care
Discharge Diagnosis/Procedures: Acute on chronic HFpEF/ edema
Acute on chronic kidney disease stage IIIa baseline creatinine of 1.2/1.4. We reduced dose of gabapentin according to renal function. Repeat BMP in 1 week.
Acute right wrist swelling, use brace, make an appointment for ortho if no improvement.
Anemia, you received 1 unit of blood transfusion and intravenous iron, 4 doses
E Coli UTI, finish course of antibiotic.
Paroxysmal Atrial fibrillation
Diet: As tolerated
Blood Work: BMP in 1 week
Instructions: *[facility] Heart Failure Instructions
Referrals:
Loyda Matos I., DO [Active, Orthopedics]
Referral Note: As needed
Chris Salcedo MD [Active, Cardiology] - 11/02/24 2:40 pm
Referral Note: You have a follow up visit with Dr. Salcedo at the [place] office. Please call with questions.
Caden Caballero MD [Family Provider, Internal Medicine] - in one to two weeks
Prescriptions:
New
cefuroxime axetil 250 mg Tablet
250 mg PO BID Qty: 5 0RF
Eliquis 2.5 mg Tablet
2.5 mg PO BID Qty: 60 0RF
furosemide 40 mg Tablet
40 mg PO DAILY Qty: 30 0RF
Continued
alprazolam 0.25 MG tablet
0.25 mg PO HSPRN PRN (Reason: anxiety/sleep)
pantoprazole 40 MG tablet,delayed release (DR/EC)
40 mg PO DAILY
imatinib 400 MG tablet
400 mg PO QPM
alendronate 70 MG tablet
70 mg PO MO
metoprolol succinate 50 MG tablet extended release 24 hr
50 mg PO HS
gabapentin 600 mg Tablet
600 mg PO BID
therapeutic multivitamin Tablet
1 tab PO DAILY
vitamin B complex Capsule
1 cap PO DAILY
Systane (PF) 0.4-0.3 % Dropperette
1 drp BOTH EYES TIDPRN PRN (Reason: dryness)
cholecalciferol (vitamin D3) [Vitamin D3] 25 mcg (1,000 unit) Tablet
25 mcg PO DAILY
Praluent Pen 75 mg/mL Pen Injector
75 mg SC Q2W
loperamide 2 mg Tablet
2 mg PO BIDPRN PRN (Reason: DIARRHEA)
clopidogrel [Plavix] 75 mg Tablet
75 mg PO DAILY
Changed
gabapentin 100 mg Capsule
200 mg PO DAILY@1300 Qty: 0 0RF
Discontinued
isosorbide mononitrate 30 MG tablet extended release 24 hr
30 mg PO DAILY
Eliquis 5 MG tablet
5 mg PO BID Qty: 30 0RF
hydralazine 25 mg Tablet
75 mg PO BID
dapagliflozin propanediol [Farxiga] 10 mg Tablet
10 mg PO DAILY
Discharge Orders:
Discharge Patient (As Directed); Ordered 10/30/24
Ordered By: Jeyson Vinson
Discharge Date and Time
Discharge Date/Time: 10/30/24 14:40
Print Language: LITHUANIAN
== END 2024-10-30 14:40 | disposition home health service (06) | DRG 291 ==
LOC: 4 EAST ACU 20:00
PROVIDERS: Emergency Medicine; ADMITTING PHYSICIAN Internal Medicine; ATTENDING PHYSICIAN Internal Medicine; EMERGENCY PHYSICIAN Emergency Medicine; FAMILY PHYSICIAN Internal Medicine Geriatric Medicine; OTHER PHYSICIAN Internal Medicine Cardiovascular Disease; OTHER PHYSICIAN Internal Medicine Nephrology
PROC: 30233N1 Transfusion of Nonautologous Red Blood Cells into Peripheral Vein, Percutaneous Approach (ICD-10-PCS; 2024-10-28)
DX: I13.0 Hypertensive heart and chronic kidney disease with heart failure and stage 1 through stage 4 chronic kidney disease, or unspecified chronic kidney disease (principal); I50.33 Acute on chronic diastolic (congestive) heart failure; N17.9 Acute kidney failure, unspecified; N39.0 Urinary tract infection, site not specified; C92.10 Chronic myeloid leukemia, BCR/ABL-positive, not having achieved remission; Z87.891 Personal history of nicotine dependence; I5A Non-ischemic myocardial injury (non-traumatic); Z79.01 Long term (current) use of anticoagulants; I48.0 Paroxysmal atrial fibrillation; E87.6 Hypokalemia; M81.0 Age-related osteoporosis without current pathological fracture; I95.9 Hypotension, unspecified; N18.31 Chronic kidney disease, stage 3a; M25.431 Effusion, right wrist
CPT/HCPCS: 71046; 73100; 76770; 80048; 80053; 80061; 81003; 81015; 82607; 82728; 82746; 83540; 83550; 83735; 83880; 84443; 84484; 84550; 85025; 85027; 85610; 85730; 86850; 86900; 86901; 86920; 87077; 87086; 87186; 93005; 93306; 96365; 96366; 96375; 97163; 97167; 99285; J2916; P9016

== ENCOUNTER → 2024-11-10 10:02 | Outpatient (REF) | payer MEDICARE, OTHER, SELFPAY ==
[2024-11-10 11:39] LABS: Hematocrit 29.0 % (37.0-47.0); Hemoglobin 9.5 g/dL (12.0-16.0); Mean Corp Hgb Conc. 32.8 g/dL (33.0-37.0); Mean Corpuscular Volume 98.6 fL (81.0-99.0); Nucleated Red Blood Cells % 0 %; Platelet Count 245 10^3/uL (130-400); Red Cell Dist. Width 17.2 % (11.5-14.5)
[2024-11-10 12:00] LABS: Albumin 4.1 g/dl (3.5-5.0); Blood Urea Nitrogen 21 mg/dl (7-17); Calcium 9.3 mg/dl (8.4-10.2); Carbon Dioxide 30 mmol/L (22-30); Chloride 101 mmol/L (98-107); Glucose 90 mg/dl (70-99); Potassium 3.6 mmol/L (3.5-5.1); Sodium 141 mmol/L (135-145); eGFR 32.00
== END ==
LOC: REG 10:02
PROVIDERS: ATTENDING PHYSICIAN Internal Medicine Cardiovascular Disease; FAMILY PHYSICIAN Internal Medicine Geriatric Medicine; OTHER PHYSICIAN Internal Medicine Hematology & Oncology
DX: N18.2 Chronic kidney disease, stage 2 (mild) (principal)
CPT/HCPCS: 36415; 80069; 85025

== ENCOUNTER → 2024-11-17 09:57 | Outpatient (REF) | payer MEDICARE, OTHER, SELFPAY ==
[2024-11-17 13:25] LABS: Hematocrit 29.9 % (37.0-47.0); Hemoglobin 9.9 g/dL (12.0-16.0); Mean Corp Hgb Conc. 33.1 g/dL (33.0-37.0); Mean Corpuscular Volume 98.7 fL (81.0-99.0); Nucleated Red Blood Cells % 0 %; Platelet Count 262 10^3/uL (130-400); Red Cell Dist. Width 16.9 % (11.5-14.5)
== END ==
LOC: HWLAB 09:57
PROVIDERS: ATTENDING PHYSICIAN Internal Medicine Hematology & Oncology; FAMILY PHYSICIAN Internal Medicine Geriatric Medicine
DX: C92.10 Chronic myeloid leukemia, BCR/ABL-positive, not having achieved remission (principal); D50.9 Iron deficiency anemia, unspecified; R59.0 Localized enlarged lymph nodes
CPT/HCPCS: 36415; 85025

== ENCOUNTER → 2024-11-23 13:52 | Outpatient (REF) | payer MEDICARE, OTHER, SELFPAY ==
[2024-11-23 15:19] LABS: Hematocrit 30.2 % (37.0-47.0); Hemoglobin 10.1 g/dL (12.0-16.0); Mean Corp Hgb Conc. 33.4 g/dL (33.0-37.0); Mean Corpuscular Volume 98.1 fL (81.0-99.0); Nucleated Red Blood Cells % 0 %; Platelet Count 222 10^3/uL (130-400); Red Cell Dist. Width 16.4 % (11.5-14.5)
[2024-11-23 15:47] LABS: Blood Urea Nitrogen 26 mg/dl (7-17); Calcium 9.5 mg/dl (8.4-10.2); Carbon Dioxide 34 mmol/L (22-30); Chloride 95 mmol/L (98-107); Glucose 108 mg/dl (70-99); Potassium 3.7 mmol/L (3.5-5.1); Sodium 137 mmol/L (135-145); eGFR 27.78
== END ==
LOC: RAD 13:52
PROVIDERS: FAMILY PHYSICIAN Internal Medicine Geriatric Medicine; OTHER PHYSICIAN Internal Medicine Hematology & Oncology; OTHER PHYSICIAN Radiology Vascular & Interventional Radiology
DX: I73.9 Peripheral vascular disease, unspecified (principal); C92.10 Chronic myeloid leukemia, BCR/ABL-positive, not having achieved remission; D50.9 Iron deficiency anemia, unspecified; R59.0 Localized enlarged lymph nodes; I50.32 Chronic diastolic (congestive) heart failure; I25.10 Atherosclerotic heart disease of native coronary artery without angina pectoris
CPT/HCPCS: 36415; 80048; 83880; 85025; 93922; 93925

== ENCOUNTER → 2024-12-08 09:54 | Outpatient (REF) | payer MEDICARE, OTHER, SELFPAY ==
[2024-12-08 12:38] LABS: Hematocrit 30.7 % (37.0-47.0); Hemoglobin 10.5 g/dL (12.0-16.0); Mean Corp Hgb Conc. 34.2 g/dL (33.0-37.0); Mean Corpuscular Volume 99.0 fL (81.0-99.0); Nucleated Red Blood Cells % 0 %; Platelet Count 216 10^3/uL (130-400); Red Cell Dist. Width 15.3 % (11.5-14.5)
[2024-12-08 13:08] LABS: Iron 88 ug/dl (37-170)
[2024-12-08 13:19] LABS: Total Iron Binding Capacity 350 ug/dl (265-497)
[2024-12-08 13:43] LABS: Ferritin 266.0 ng/ml (11.1-264.0)
== END ==
LOC: HWLAB 09:54
PROVIDERS: ATTENDING PHYSICIAN Internal Medicine Hematology & Oncology; FAMILY PHYSICIAN Internal Medicine Geriatric Medicine
DX: C92.10 Chronic myeloid leukemia, BCR/ABL-positive, not having achieved remission (principal); D50.9 Iron deficiency anemia, unspecified; R59.0 Localized enlarged lymph nodes
CPT/HCPCS: 36415; 82728; 83540; 83550; 85025

== ENCOUNTER → 2024-12-15 11:09 | Outpatient (REF) | payer MEDICARE, OTHER, SELFPAY ==
[2024-12-15 11:21] LABS: Hematocrit 30.2 % (37.0-47.0); Hemoglobin 10.3 g/dL (12.0-16.0); Mean Corp Hgb Conc. 34.1 g/dL (33.0-37.0); Mean Corpuscular Volume 97.1 fL (81.0-99.0); Platelet Count 227 10^3/uL (130-400); Red Cell Dist. Width 14.7 % (11.5-14.5)
[2024-12-15 12:20] LABS: ALT (SGPT) 20 U/L (0-35); AST (SGOT) 39 U/L (14-36); Albumin 4.4 g/dl (3.5-5.0); Alkaline Phosphatase 64 U/L (38-126); Blood Urea Nitrogen 36 mg/dl (7-17); Calcium 9.3 mg/dl (8.4-10.2); Carbon Dioxide 34 mmol/L (22-30); Chloride 99 mmol/L (98-107); Glucose 94 mg/dl (70-99); Potassium 4.1 mmol/L (3.5-5.1); Sodium 138 mmol/L (135-145); Total Protein 6.5 g/dl (6.3-8.2); eGFR 29.76
== END ==
LOC: OIDL 11:09
PROVIDERS: ATTENDING PHYSICIAN Internal Medicine Hematology & Oncology
DX: C92.10 Chronic myeloid leukemia, BCR/ABL-positive, not having achieved remission (principal); D50.9 Iron deficiency anemia, unspecified; R59.0 Localized enlarged lymph nodes
CPT/HCPCS: 80053; 85025

== ENCOUNTER → 2025-01-04 10:47 | Outpatient (REF) | payer MEDICARE, OTHER, SELFPAY ==
[2025-01-04 16:29] LABS: Urine Character Clear (Clear)
[2025-01-04 16:52] LABS: Albumin 4.5 g/dl (3.5-5.0); Blood Urea Nitrogen 32 mg/dl (7-17); Calcium 9.9 mg/dl (8.4-10.2); Carbon Dioxide 34 mmol/L (22-30); Chloride 98 mmol/L (98-107); Glucose 93 mg/dl (70-99); Potassium 3.8 mmol/L (3.5-5.1); Sodium 139 mmol/L (135-145); eGFR 29.76
== END ==
LOC: HWLAB 10:47
PROVIDERS: ATTENDING PHYSICIAN Internal Medicine; FAMILY PHYSICIAN Internal Medicine Geriatric Medicine
DX: N17.9 Acute kidney failure, unspecified (principal)
CPT/HCPCS: 36415; 80069; 81003; 82570; 83520; 84155; 84156; 84165; 86335

== ENCOUNTER → 2025-01-13 08:47 | Outpatient (REF) | payer MEDICARE, OTHER, SELFPAY | LOC: RAD 08:47 | PROVIDERS: ATTENDING PHYSICIAN Internal Medicine; FAMILY PHYSICIAN Internal Medicine Geriatric Medicine | DX: N17.9 Acute kidney failure, unspecified (principal) | CPT/HCPCS: 93975 ==

== ENCOUNTER → 2025-01-17 13:45 | Outpatient (REF) | payer MEDICARE, OTHER, SELFPAY | LOC: RCS 13:45 | PROVIDERS: ATTENDING PHYSICIAN Internal Medicine Cardiovascular Disease; FAMILY PHYSICIAN Internal Medicine Geriatric Medicine | DX: I35.0 Nonrheumatic aortic (valve) stenosis (principal) | CPT/HCPCS: 93306 ==

== ENCOUNTER → 2025-01-20 10:43 | Outpatient (REF) | payer MEDICARE, OTHER, SELFPAY ==
[2025-01-20 17:11] LABS: Albumin 4.6 g/dl (3.5-5.0); Blood Urea Nitrogen 45 mg/dl (7-17); Calcium 9.5 mg/dl (8.4-10.2); Carbon Dioxide 33 mmol/L (22-30); Chloride 96 mmol/L (98-107); Glucose 87 mg/dl (70-99); Potassium 4.1 mmol/L (3.5-5.1); Sodium 137 mmol/L (135-145); eGFR 26.04
== END ==
LOC: HWLAB 10:43
PROVIDERS: ATTENDING PHYSICIAN Internal Medicine; FAMILY PHYSICIAN Internal Medicine Geriatric Medicine
DX: I10 Essential (primary) hypertension (principal); N18.2 Chronic kidney disease, stage 2 (mild)
CPT/HCPCS: 36415; 80069

== ENCOUNTER → 2025-04-05 10:09 | Outpatient (REF) | payer MEDICARE, OTHER, SELFPAY | LOC: RAD 10:09 | PROVIDERS: FAMILY PHYSICIAN Internal Medicine Geriatric Medicine; OTHER PHYSICIAN Radiology Vascular & Interventional Radiology | DX: I73.9 Peripheral vascular disease, unspecified (principal) | CPT/HCPCS: 93922; 93925 ==

== ENCOUNTER → 2025-04-13 10:11 | Outpatient (REF) | payer MEDICARE, OTHER, SELFPAY ==
[2025-04-13 12:24] LABS: Hematocrit 31.1 % (37.0-47.0); Hemoglobin 10.5 g/dL (12.0-16.0); Mean Corp Hgb Conc. 33.8 g/dL (33.0-37.0); Mean Corpuscular Volume 95.7 fL (81.0-99.0); Nucleated Red Blood Cells % 0 %; Platelet Count 220 10^3/uL (130-400); Red Cell Dist. Width 13.2 % (11.5-14.5)
[2025-04-13 12:38] LABS: INR 1.30; PT 15.9 Sec (11.4-14.6)
[2025-04-13 13:23] LABS: Blood Urea Nitrogen 36 mg/dl (7-17); Calcium 10.1 mg/dl (8.4-10.2); Carbon Dioxide 32 mmol/L (22-30); Chloride 96 mmol/L (98-107); Glucose 88 mg/dl (70-99); Potassium 4.1 mmol/L (3.5-5.1); Sodium 137 mmol/L (135-145); eGFR 27.78
== END ==
LOC: RCS 10:11
PROVIDERS: ATTENDING PHYSICIAN Internal Medicine Cardiovascular Disease; FAMILY PHYSICIAN Internal Medicine Geriatric Medicine; OTHER PHYSICIAN Physician Assistant
DX: I35.0 Nonrheumatic aortic (valve) stenosis (principal); I73.9 Peripheral vascular disease, unspecified
CPT/HCPCS: 36415; 80048; 85025; 85610; 93306

== ENCOUNTER → 2025-04-20 12:48 | Outpatient (REF) | payer MEDICARE, OTHER, SELFPAY ==
[2025-04-20 15:52] LABS: Albumin 4.4 g/dl (3.5-5.0); Blood Urea Nitrogen 26 mg/dl (7-17); Calcium 9.3 mg/dl (8.4-10.2); Carbon Dioxide 30 mmol/L (22-30); Chloride 95 mmol/L (98-107); Glucose 87 mg/dl (70-99); Potassium 4.3 mmol/L (3.5-5.1); Sodium 134 mmol/L (135-145); eGFR 27.78
== END ==
LOC: REG 12:48
PROVIDERS: ATTENDING PHYSICIAN Internal Medicine; FAMILY PHYSICIAN Internal Medicine Geriatric Medicine
DX: N17.9 Acute kidney failure, unspecified (principal)
CPT/HCPCS: 36415; 80069; 82570; 84156; 84300